=== PATIENT | male | born 1945 | race Caucasian/White ===

== ENCOUNTER 2019-03-24 18:12 | Emergency (ER) | payer OTHER ==
[2019-03-24 18:26] VITALS: BMI 37.3
[2019-03-24] MEDS ORDERED: SODIUM CHLORIDE 0.9% 500 ML INFUS.BAG IV ONE (18:49)
[2019-03-24 19:12] LABS: EOS % 2.5 % (0-4.5); HEMATOCRIT 51.1 % (35.4-49); HEMOGLOBIN 16.7 GM/dl (11.7-16.9); LYMPH % 20.8 % (8-40); MCH 27.5 pg (25.7-33.7); MCHC 32.7 g/dl (32.0-35.9); MEAN CELL VOLUME 84.2 fl (80-96); MEAN PLT VOLUME 7.9 fl (7.5-11.1); MONO % 7.7 % (3.8-10.2); PLATELET COUNT 229 K/MM3 (134-434); RBC 6.07 M/mm3 (4.00-5.60); RDW 14.4 % (11.9-15.9); WHITE BLOOD COUNT 9.2 K/mm3 (4.0-10.8)
[2019-03-24 19:32] LABS: ALBUMIN 4.8 g/dl (3.4-5.0); BILIRUBIN,TOTAL 0.8 mg/dl (0.2-1); CALCIUM 9.2 mg/dl (8.5-10); POTASSIUM 3.9 mmol/L (3.5-5.1)
--- NOTE | 2019-03-24 19:43 | PDOC ---
Documentation entered by Charlotte Trujillo SCRIBE, acting as scribe for Kareen Wells MD. Kareen Wells MD: This documentation has been prepared by the Ronnie locke Brenda, SCRIBE, under my direction and personally reviewed by me in its entirety. I confirm that the documentation accurately reflects all work , treatment, procedures, and medical decision making performed by me. History of Present Illness - General Chief Complaint: Rectal Bleed Stated Complaint: RECTAL BLLEED History Source: Patient Exam Limitations: No Limitations - History of Present Illness Initial Comments: 03/24/19 19:04 The patient is a 73 year old male, with a significant PMH of HTN who presents to the emergency department with complaints of 3 hours of large bright red blood per rectum with clumps. As per patient, he noticed small amounts when passing a bowel movement this morning, and noticed that it got worse throughout the day. The patient states that he takes PM Aleve every night. The patient denies chest pain, shortness of breath, headache and dizziness. Denies fever, chills, nausea, vomiting, diarrhea and constipation. Denies any urinary symptoms. PAST MEDICAL HISTORY: PAST SURGICAL HISTORY: no significant history FAMILY HISTORY: no pertinent history SOCIAL HISTORY: Denies tobacco use or illicit drug use. MEDICATIONS: reviewed ALLERGIES: As per nursing notes General: No fevers or chills, no weakness, no weight loss HEENT: No change in vision. No sore throat,. No ear pain CardioVascular: No chest pain or shortness of breath Respiratory:No cough, or wheezing. Gastrointestinal: (+) Rectal bleeding. No nausea, vomiting, diarrhea or constipation. Genitourinary: No dysuria, hematuria, or frequency Musculoskeletal: No joint or muscle pain or swelling Neurologic: No headache, vertigo, dizziness or loss of consciousness Psychiatric: nor depression Skin: No rashes or easy bruising Endocrine: no increased thirst or abnormal weight change Allergic: no skin or latex allergy All other systems reviewed and normal General: (+) Tachycardic. (+) Diaphoretic. Well-nourished well-developed individual, no acute distress HEENT: Throat: Normal, tonsils normal, no erythema or exudate Neck: Supple, no meningeal signs, no lymphadenopathy Eyes::Pupils equal reactive and round, extraocular motion intact Chest: Nontender to palpation Cardiac: S1-S2 normal, no murmurs rubs or gallops Respiratory: Lungs clear to auscultation bilateral Abdomen: Soft, nondistended, normal bowel sounds, nontender to palpation diffusely GI: (+) Active rectal bleeding. Extremities: Warm, dry, no cyanosis, clubbing, or edema Skin: No rashes Neuro: Alert and oriented x3, nonfocal exam, grossly intact, normal gait Psych: Normal mood and affect 03/24/19 19:42 Assessment and plan: This is a 73-year-old male who comes in complaining of several episodes of bright red blood per rectum with clots and bleeding between bowel movements. Patient on arrival had a heart rate of 65 within an hour was heart rate 121. Patient had 2 large-bore IVs placed and fluid resuscitation was begun patient's heart rate 1 improved and he is 106 at this time after approximately 1 L fluid. Patient is now receiving 2 units of uncrossed matched packed cells. GI was contacted however due to patient's hemodynamic instability and it being unclear as to who was the GI that covered to [facility] varun in the overnight hours for emergencies the decision was made to send patient to [facility]. [facility] was contacted and spoke with A rescue ambulance was called and patient will be transferred to the emergency department. 03/24/19 19:49 Past History - Past Medical History Allergies/Adverse Reactions: Allergies Allergy/AdvReac Type Severity Reaction Status Date / Time No Known Allergies Allergy Verified 03/24/19 18:13 Home Medications: Ambulatory Orders Amlodipine Besylate 10 mg PO DAILY 03/24/19 Losartan Potassium 100 mg PO DAILY 03/24/19 Naproxen Sod/Diphenhydramine [Aleve Pm Caplet] 1 each PO HS 03/24/19 COPD: No HTN: Yes - Suicide/Smoking/Psychosocial Hx Smoking History: Never smoked Have you smoked in the past 12 months: No Information on smoking cessation initiated: No Hx Alcohol Use: No Drug/Substance Use Hx: No *Physical Exam - Vital Signs Last Vital Signs Temp Pulse Resp BP Pulse Ox 98.3 F 65 20 170/96 97 03/24/19 18:13 03/24/19 18:13 03/24/19 18:13 03/24/19 18:13 03/24/19 18:13 ED Treatment Course - LABORATORY CBC & Chemistry Diagram: 03/24/19 18:51 03/24/19 18:51 - ADDITIONAL ORDERS Additional order review: Laboratory Results 03/24/19 03/24/19 18:51 18:51 Sodium 136 Potassium 3.9 Chloride 104 Carbon Dioxide 22 Anion Gap 10 BUN 18.0 Creatinine 1.0 Est GFR (CKD-EPI)AfAm 87.37 Est GFR (CKD-EPI)NonAf 75.39 Random Glucose 130 H Calcium 9.2 Total Bilirubin 0.8 AST 26 ALT 23 Alkaline Phosphatase 91 Total Protein 8.0 Albumin 4.8 Crossmatch See Detail 03/24/19 18:51 RBC 6.07 H MCV 84.2 MCHC 32.7 RDW 14.4 MPV 7.9 Neutrophils % 68.0 Lymphocytes % 20.8 Monocytes % 7.7 Eosinophils % 2.5 Basophils % 1.0 - Medications Given in the ED: ED Medications Discontinued Medications Generic Name Dose Route Start Last Admin Trade Name Freq PRN Reason Stop Dose Admin Sodium Chloride 1,000 ml 03/24/19 18:49 03/24/19 18:57 Normal Saline - IV 03/24/19 18:50 1,000 ml ONCE ONE Administration Medical Decision Making - Critical Care Time Total Critical Care Time (minutes): 45 Critical Care Statement: The care of this patient involved high complexity decision making to prevent further life threatening deterioration of the patient 's condition and/or to evaluate & treat vital organ system(s) failure or risk of failure. - Medical Decision Making 03/24/19 19:[address] Gonzalez at 19:05 - no answer. *DC/Admit/Observation/Transfer Diagnosis at time of Disposition: Bright red blood per rectum - Discharge Dispostion Disposition: TRANSFER ACUTE CARE/OTHER HOSP Condition at time of disposition: Critical - Referrals - Patient Instructions - Post Discharge Activity
[2019-03-24 19:54] LABS: INR 1.16 (0.82-1.09)
[2019-03-24 20:30] VITALS: BP 147/75; PULSE 87; TEMP 98.2
== END 2019-03-24 20:35 | disposition short-term general hospital (02) ==
LOC: FER 18:12
PROC: 3E0337Z Introduction of Electrolytic and Water Balance Substance into Peripheral Vein, Percutaneous Approach (ICD-10-PCS; principal; 2019-03-24)
DX: K62.5 Hemorrhage of anus and rectum (principal); I10 Essential (primary) hypertension
CPT/HCPCS: 36415; 36430; 36511; 80053; 83880; 84484; 85025; 85610; 85730; 86850; 86900; 86901; 86922; 99285-25; P9038; P9058

== ENCOUNTER 2020-09-06 16:37 | Emergency (ER) | payer OTHER | END 2020-09-06 17:32 | disposition home or self-care (01) | LOC: JVIRT 16:37 | DX: Z11.52 Encounter for screening for COVID-19 (principal) | CPT/HCPCS: C9803; G2251-GT; U0003 ==

== ENCOUNTER 2022-04-09 15:40 | Inpatient (IN) | payer OTHER ==
[2022-04-09] MEDS ORDERED: CEPHALEXIN MONOHYDRATE 500 MG CAPSULE (UD) PO ONE (17:08)
[2022-04-09] MEDS ORDERED: CEPHALEXIN MONOHYDRATE 500 MG CAPSULE (UD) ONE (17:17)
[2022-04-09 17:53] LABS: HEMOGLOBIN 17.6 G/dL (11.7-16.9); MCH 29.1 pg (25.7-33.7); MCHC 34.5 g/dl (32.0-35.9); MEAN CELL VOLUME 84.3 fl (80-96); MEAN PLT VOLUME 7.5 fl (7.5-11.1); PLATELET COUNT 161.2 10^3/uL (134-434); RBC 6.05 10^6/uL (4.00-5.60); RDW 15.2 % (11.9-15.9); WHITE BLOOD COUNT 10.1 10^3/uL (4.0-10.8)
[2022-04-09 17:59] LABS: INR 1.08 (0.83-1.09); PROTHROMBIN TIME (PATIENT) 12.4 SEC (9.7-13.0)
[2022-04-09 18:02] LABS: ACTIVATED PTT 33.1 SECONDS (25.2-36.5)
[2022-04-09 18:05] LABS: ALBUMIN 4.7 g/dl (3.4-5.0); BILIRUBIN,TOTAL 0.9 mg/dl (0.2-1); CALCIUM 9.5 mg/dl (8.5-10); TOT PROT 8.5 g/dl (6.4-8.2)
[2022-04-09 18:45] LABS: PLATELET ESTIMATE ADEQUATE
[2022-04-09] MEDS ORDERED: ENOXAPARIN NA (PORCINE) 80 MG/0.8 ML DISP.SYRIN SQ ONE (18:48)
[2022-04-09] MEDS ORDERED: ENOXAPARIN NA (PORCINE) 100 MG/1 ML DISP.SYRIN SQ ONE (18:54)
[2022-04-09] MEDS ORDERED: ENOXAPARIN NA (PORCINE) 40 MG/0.4 ML DISP.SYRIN SQ ONE (21:45)
[2022-04-09] MEDS ORDERED: ENOXAPARIN NA (PORCINE) 60 MG/0.6 ML DISP.SYRIN SQ ONE (21:47)
[2022-04-10 04:35] VITALS: BMI 36.2
[2022-04-10 06:49] VITALS: PULSE 86; TEMP 98.2
[2022-04-10 08:09] LABS: BASO % 1.1 % (0-2.0); EOS % 3.2 % (0-4.5); HEMOGLOBIN 15.4 GM/dL (11.7-16.9); LYMPH % 21.7 % (8-40); MCH 27.1 pg (25.7-33.7); MCHC 32.1 g/dl (32.0-35.9); MEAN CELL VOLUME 84.2 fl (80-96); MEAN PLT VOLUME 7.8 fl (7.5-11.1); MONO % 8.2 % (3.8-10.2); NEUT % 65.8 % (42.8-82.8); PLATELET COUNT 176 10^3/uL (134-434); RDW 15.8 % (11.9-15.9); RETICULOCYTES 0.92 % (0.5-1.5); WHITE BLOOD COUNT 8.4 K/mm3 (4.0-10.0)
[2022-04-10] MEDS ORDERED: LOSARTAN POTASSIUM 50 MG TABLET PO SCH (10:00)
[2022-04-10] MEDS ORDERED: amLODIPine BESYLATE 10 MG TABLET (FP) PO SCH (10:00)
[2022-04-10] MEDS ORDERED: ENOXAPARIN NA (PORCINE) 120 MG/0.8 ML DISP.SYRIN SQ SCH (10:00)
[2022-04-10 10:07] LABS: BLOOD UREA NITROGEN 19.9 mg/dL (7-18); CALCIUM 7.2 mg/dL (8.5-10.1)
[2022-04-10 10:11] LABS: BILIRUBIN,TOTAL 0.5 mg/dL (0.2-1); TOT PROT 7.2 g/dl (6.4-8.2)
[2022-04-10 10:44] LABS: ALBUMIN 4.1 g/dl (3.4-5.0)
[2022-04-10 11:19] VITALS: BP 124/99; RESP 18
[2022-04-14 00:06] LABS: PROTEIN S, FREE 103 % (61-136)
== END 2022-04-10 13:41 | disposition home or self-care (01) | DRG 299 ==
LOC: FER 15:40 → FM/S 17:11 → J4W 04-10 03:05 → OBSVTOIN 04-10 04:15
PROVIDERS: ADMIT Internal Medicine; ATTEND Internal Medicine
DX: I82.411 Acute embolism and thrombosis of right femoral vein (principal); U07.1 COVID-19; D68.9 Coagulation defect, unspecified; I82.431 Acute embolism and thrombosis of right popliteal vein; I10 Essential (primary) hypertension; K57.90 Diverticulosis of intestine, part unspecified, without perforation or abscess without bleeding; Z86.718 Personal history of other venous thrombosis and embolism
CPT/HCPCS: 36415; 80053; 81240; 81241; 85025; 85027; 85045; 85300; 85305; 85306; 85610; 85730; 86140; 93005; 93010; 93971-TC; 99285-25; C9803-CS; G0378; U0003; U0005

== ENCOUNTER 2024-04-22 16:22 | Inpatient (IN) | payer OTHER ==
[2024-04-22 18:06] LABS: HEMATOCRIT 52.9 % (35.4-49); HEMOGLOBIN 16.4 G/dL (11.7-16.9); MCH 27.8 pg (25.7-33.7); MEAN CELL VOLUME 89.8 fl (80-96); MEAN PLT VOLUME 7.5 fl (7.5-11.1); RBC 5.89 10^6/uL (4.00-5.60); RDW 16.2 % (11.9-15.9); WHITE BLOOD COUNT 7.6 10^3/uL (4.0-10.8)
[2024-04-22 18:30] LABS: ALBUMIN 4.5 g/dl (3.4-5.0); BILIRUBIN,TOTAL 0.5 mg/dl (0.2-1); CALCIUM 9.2 mg/dl (8.5-10.1); CREATININE 0.7 mg/dl (0.6-1.3); POTASSIUM 4.3 mmol/L (3.5-5.1); TOT PROT 7.1 g/dl (6.4-8.2)
[2024-04-22 18:51] LABS: PLATELET ESTIMATE ADEQUATE
[2024-04-22 19:25] LABS: N-TERMINAL BNP 136.7 pg/ml (5-450)
[2024-04-22] MEDS ORDERED: morphine SULFATE 4 MG/ML VIAL ONE (19:51)
[2024-04-22] MEDS: morphine CARPU-JECT 4 MG/1 ML DISP.SYRIN IVPUSH ONE (19:55)
[2024-04-22] MEDS ORDERED: DOCUSATE SODIUM 100 MG CAPSULE (FP) PO PRN (21:20)
[2024-04-22] MEDS ORDERED: ACETAMINOPHEN 1000 MG/100 ML BAG IVPB PRN (21:32)
[2024-04-22 22:12] LABS: ACTIVATED PTT 55.6 SECONDS (25.2-36.5); INR 1.23 (0.83-1.09); PROTHROMBIN TIME (PATIENT) 13.9 SEC (9.7-13.0)
[2024-04-23 09:00] LABS: CALCIUM 8.8 mg/dl (8.5-10.1); CREATININE 0.7 mg/dl (0.6-1.3); POTASSIUM 4.3 mmol/L (3.5-5.1)
[2024-04-23] MEDS ORDERED: FUROSEMIDE 40 MG/4 ML INJECTABLE VIAL IVPUSH SCH (10:00)
[2024-04-23] MEDS: ENOXAPARIN NA (PORCINE) 100 MG/1 ML DISP.SYRIN SQ SCH (10:07)
[2024-04-23] MEDS: LOSARTAN POTASSIUM 50 MG TABLET PO SCH (10:07)
[2024-04-23] MEDS: amLODIPine BESYLATE 10 MG TABLET (FP) PO SCH (10:08)
[2024-04-23 12:07] LABS: BASO % 0.3 % (0-2.0); EOS % 0.2 % (0-4.5); HEMATOCRIT 48.6 % (35.4-49); HEMOGLOBIN 15.5 GM/dL (11.7-16.9); LYMPH % 7.9 % (8-40); MCH 27.4 pg (25.7-33.7); MCHC 31.9 g/dl (32.0-35.9); MEAN CELL VOLUME 85.9 fl (80-96); MEAN PLT VOLUME 7.7 fl (7.5-11.1); NEUT % 86.6 % (42.8-82.8); PLATELET COUNT 158 10^3/uL (134-434); RBC 5.65 M/mm3 (4.00-5.60); RDW 15.8 % (11.9-15.9); WHITE BLOOD COUNT 6.5 K/mm3 (4.0-10.0)
[2024-04-23] MEDS: SODIUM CHLORIDE 0.9% 500 ML INFUS.BAG IV ONE (19:24)
[2024-04-23] MEDS: ACETAMINOPHEN 325 MG TABLET (FP) PO PRN (21:46)
[2024-04-24 09:49] LABS: ALBUMIN 4.7 g/dl (3.4-5.0); BILIRUBIN,TOTAL 0.7 mg/dl (0.2-1); CALCIUM 9.7 mg/dl (8.5-10.1); POTASSIUM 4.3 mmol/L (3.5-5.1); TOT PROT 7.5 g/dl (6.4-8.2)
[2024-04-24 11:36] LABS: BASO % 0.2 % (0-2.0); EOS % 0.1 % (0-4.5); HEMATOCRIT 51.3 % (35.4-49); HEMOGLOBIN 16.4 GM/dL (11.7-16.9); LYMPH % 4.7 % (8-40); MCH 27.5 pg (25.7-33.7); MCHC 31.9 g/dl (32.0-35.9); MEAN CELL VOLUME 86.2 fl (80-96); MEAN PLT VOLUME 8.2 fl (7.5-11.1); MONO % 8.1 % (3.8-10.2); NEUT % 86.9 % (42.8-82.8); PLATELET COUNT 194 10^3/uL (134-434); RBC 5.95 M/mm3 (4.00-5.60); RDW 16.3 % (11.9-15.9); WHITE BLOOD COUNT 12.4 K/mm3 (4.0-10.0)
[2024-04-24 11:42] LABS: N-TERMINAL BNP 209.2 pg/ml (5-450)
[2024-04-24] MEDS: BACITRACIN ZINC 15 GM TUBE TOPICAL OINTMENT TP ONE (19:38)
[2024-04-24] MEDS: LIDOCAINE 5% TOPICAL PATCH TP ONE (19:38)
[2024-04-24] MEDS: FUROSEMIDE 40 MG/4 ML INJECTABLE VIAL IVPUSH ONE (19:38)
[2024-04-24 20:54] LABS: EPI CELLS 4 /uL (0-25.1); HYALINE CASTS 1 /uL (0-3.1); PH,URINE 5.5 (5.0-8.0); URINE APPEARANCE CLEAR; URINE BACTERIA 33 /uL (0-1359); URINE BILIRUBIN NEGATIVE (NEGATIVE); URINE COLOR YELLOW; URINE GLUCOSE (UA) NEGATIVE (NEGATIVE); URINE KETONE 1+ (NEGATIVE); URINE LEUK ESTERASE 2+ (NEGATIVE); URINE NITRITE NEGATIVE (NEGATIVE); URINE PROTEIN TRACE (NEGATIVE); URINE RBC 18 /uL (0-23.9); URINE WBC 37 /uL (0-25.8)
[2024-04-24 21:01] LABS: MAGNESIUM 2.2 mg/dL (1.8-2.4)
[2024-04-24 21:04] LABS: PHOSPHOROUS 2.1 mg/dL (2.5-4.9)
[2024-04-24] MEDS: LIDOCAINE PATCH REMOVAL MC SCH (22:13)
[2024-04-25] MEDS ORDERED: METOPROLOL TARTRATE 5 MG/5 ML VIAL IVPUSH PRN (06:13)
[2024-04-25 07:24] LABS: MAGNESIUM 2.1 mg/dL (1.8-2.4)
[2024-04-25 07:35] LABS: BASO % 0.6 % (0-2.0); EOS % 0.1 % (0-4.5); HEMATOCRIT 50.5 % (35.4-49); HEMOGLOBIN 16.4 GM/dL (11.7-16.9); LYMPH % 6.7 % (8-40); MCH 27.6 pg (25.7-33.7); MCHC 32.4 g/dl (32.0-35.9); MEAN CELL VOLUME 85.1 fl (80-96); MEAN PLT VOLUME 7.6 fl (7.5-11.1); MONO % 7.2 % (3.8-10.2); NEUT % 85.4 % (42.8-82.8); PLATELET COUNT 181 10^3/uL (134-434); RBC 5.94 M/mm3 (4.00-5.60); WHITE BLOOD COUNT 14.1 K/mm3 (4.0-10.0)
[2024-04-25 09:12] LABS: ALBUMIN 3.8 g/dl (3.4-5.0); BILIRUBIN,TOTAL 0.6 mg/dL (0.2-1); BLOOD UREA NITROGEN 22.9 mg/dL (7-18); CALCIUM 9.6 mg/dL (8.5-10.1); CREATININE 0.9 mg/dL (0.55-1.3); POTASSIUM 3.8 mmol/L (3.5-5.1); TOT PROT 7.4 g/dl (6.4-8.2)
[2024-04-25] MEDS: LOSARTAN POTASSIUM 50 MG TABLET PO SCH (10:10)
[2024-04-25] MEDS: amLODIPine BESYLATE 10 MG TABLET (FP) PO SCH (10:10)
[2024-04-25 15:43] LABS: ARTERIAL BLOOD GAS BASE EXCESS 3.9 mmol/L (-2-2); ARTERIAL BLOOD GAS PO2 197.3 mmHg (80-100); ARTERIAL BLOOD GAS pH 7.203 (7.350-7.450)
[2024-04-25] MEDS ORDERED: VANCOMYCIN/WATER FOR INJ (PEG) 1,000 MG/200 ML BAG IVPB ONE (15:43)
[2024-04-25 15:45] LABS: ALLENS TEST POSITIVE
[2024-04-25 15:46] LABS: VENT MODE S/T; VENT RATE 14
[2024-04-25] MEDS: FLUMAZENIL 0.5 MG/5 ML VIAL IVPUSH PRN (16:00)
[2024-04-25] MEDS: FLUMAZENIL 0.5 MG/5 ML VIAL IVPUSH ONE ×3 (16:37→19:11)
[2024-04-25] MEDS: PIPERACILLIN/TAZOB 3.375 GM 3.375 GM in DEXTROSE 5%-WATER - 50 ML IVPB SCH (16:37)
[2024-04-25 16:54] LABS: ALLENS TEST POSITIVE; ARTERIAL BLOOD GAS PO2 199.9 mmHg (80-100)
[2024-04-25 16:55] LABS: VENT RATE 20
[2024-04-25 16:56] LABS: ARTERIAL BLOOD GAS pH 7.176 (7.350-7.450)
[2024-04-25] MEDS ORDERED: PROPOFOL 1,000,000 MCG/100 ML VIAL ONE (17:24)
[2024-04-25] MEDS: PROPOFOL 1,000,000 MCG/100 ML VIAL IVPB SCH (17:30)
[2024-04-25 17:49] LABS: BASO % 0.3 % (0-2.0); HEMATOCRIT 48.2 % (35.4-49); HEMOGLOBIN 15.6 GM/dL (11.7-16.9); LYMPH % 5.7 % (8-40); MCH 27.5 pg (25.7-33.7); MCHC 32.5 g/dl (32.0-35.9); MEAN CELL VOLUME 84.7 fl (80-96); MONO % 5.5 % (3.8-10.2); NEUT % 88.5 % (42.8-82.8); PLATELET COUNT 184 10^3/uL (134-434); RBC 5.69 M/mm3 (4.00-5.60); RDW 15.9 % (11.9-15.9); WHITE BLOOD COUNT 12.6 K/mm3 (4.0-10.0)
[2024-04-25 18:08] LABS: POTASSIUM 4.8 mmol/L (3.5-5.1)
[2024-04-25 18:10] LABS: ALBUMIN 3.4 g/dl (3.4-5.0); CALCIUM 8.8 mg/dL (8.5-10.1)
[2024-04-25 18:11] LABS: BLOOD UREA NITROGEN 27.8 mg/dL (7-18)
[2024-04-25 18:15] LABS: BILIRUBIN,TOTAL 0.5 mg/dL (0.2-1)
[2024-04-25 18:18] LABS: N-TERMINAL BNP 420.6 pg/ml (5-450)
[2024-04-25 20:13] LABS: ARTERIAL BLD GAS O2 SATURATION 97.5 % (95-98); ARTERIAL BLOOD GAS PO2 93.6 mmHg (80-100); ARTERIAL BLOOD GAS pH 7.466 (7.350-7.450)
[2024-04-25 20:19] LABS: ALLENS TEST POSITIVE; VENT MODE A/C; VENT RATE 20
[2024-04-25] MEDS: DEXMEDETOMIDINE PREMIX 400 MCG/100 ML BAG IVPB SCH (21:14)
[2024-04-25] MEDS ORDERED: MUPIROCIN 2% TOPICAL OINTMENT FOR DECOLONIZATION NS SCH (22:00)
[2024-04-25] MEDS ORDERED: CHLORHEXIDINE GLUCONATE 4% CLEANSER FOR DECOLONIZATION TP SCH (22:00)
[2024-04-25] MEDS: CHLORHEXIDINE GLUCONATE 4% CLEANSER FOR DECOLONIZATION TP SCH (22:21)
[2024-04-25] MEDS: MUPIROCIN 2% TOPICAL OINTMENT FOR DECOLONIZATION NS SCH (22:22)
[2024-04-25] MEDS: AMINO ACIDS/PROTEIN HYDROLYS 30 ML LIQUID.PKT PO SCH (22:23)
[2024-04-25 22:53] LABS: URINE APPEARANCE CLEAR; URINE BILIRUBIN NEGATIVE (NEGATIVE); URINE COLOR YELLOW; URINE GLUCOSE (UA) NEGATIVE (NEGATIVE); URINE KETONE TRACE (NEGATIVE); URINE NITRITE NEGATIVE (NEGATIVE); URINE PROTEIN TRACE (NEGATIVE)
[2024-04-25 22:54] LABS: URINE LEUK ESTERASE NEGATIVE (NEGATIVE)
[2024-04-25] MEDS: VANCOMYCIN/WATER FOR INJ (PEG) 1,000 MG/200 ML BAG IVPB ONE (22:56)
[2024-04-26] MEDS: LACTATED RINGERS SOLUTION 1,000 ML/1,000 ML INFUS.BAG IV STA (02:00)
[2024-04-26] MEDS: NOREPINEPHRINE BITARTRATE 4,000 MCG in DEXTROSE 5%-WATER - 496 ML IV SCH (03:00)
[2024-04-26] MEDS ORDERED: RAPID SEQUENCE INTUBATION KIT NR ONE (04:26)
[2024-04-26 07:24] LABS: BASO % 0.2 % (0-2.0); EOS % 0.3 % (0-4.5); HEMATOCRIT 43.3 % (35.4-49); LYMPH % 7.4 % (8-40); MCH 27.5 pg (25.7-33.7); MCHC 32.3 g/dl (32.0-35.9); MEAN CELL VOLUME 85.2 fl (80-96); MEAN PLT VOLUME 7.4 fl (7.5-11.1); MONO % 8.3 % (3.8-10.2); NEUT % 83.8 % (42.8-82.8); PLATELET COUNT 162 10^3/uL (134-434); RBC 5.09 M/mm3 (4.00-5.60); RDW 15.7 % (11.9-15.9)
[2024-04-26 07:31] LABS: ARTERIAL BLD GAS O2 SATURATION 95.4 % (95-98); ARTERIAL BLOOD GAS BASE EXCESS 5.7 mmol/L (-2-2); ARTERIAL BLOOD GAS PO2 73.2 mmHg (80-100); ARTERIAL BLOOD GAS pH 7.463 (7.350-7.450)
[2024-04-26 07:33] LABS: ALLENS TEST POSITIVE; VENT MODE A/C; VENT RATE 20
[2024-04-26 07:50] LABS: POTASSIUM 3.6 mmol/L (3.5-5.1)
[2024-04-26 07:59] LABS: BLOOD UREA NITROGEN 37.9 mg/dL (7-18)
[2024-04-26 08:03] LABS: CREATININE 1.2 mg/dL (0.55-1.3)
[2024-04-26 08:04] LABS: BILIRUBIN,TOTAL 0.9 mg/dL (0.2-1)
[2024-04-26 08:05] LABS: TOT PROT 5.8 g/dl (6.4-8.2)
[2024-04-26] MEDS ORDERED: DOCUSATE SODIUM 100 MG CAPSULE (FP) PO PRN (11:37)
[2024-04-26] MEDS ORDERED: ACETAMINOPHEN 325 MG TABLET (FP) PO PRN (11:37)
[2024-04-26] MEDS ORDERED: FLUMAZENIL 0.5 MG/5 ML VIAL IVPUSH PRN (11:37)
[2024-04-26] MEDS: FLUTICASONE/UMECLIDIN/VILANTER(200-62.5-25 TRELEGY ELLIPTA) INAHLER IH SCH (12:32)
[2024-04-26] MEDS: PROPOFOL 1,000,000 MCG/100 ML VIAL IVPB SCH (15:02)
[2024-04-26] MEDS: methylPREDNISolone NA SUCC 40 MG/1 ML VIAL IVPUSH SCH (15:50)
[2024-04-26] MEDS: PIPERACILLIN/TAZOB 3.375 GM 3.375 GM in DEXTROSE 5%-WATER - 50 ML IVPB SCH ×2 (15:52→17:32)
[2024-04-26] MEDS ORDERED: ALBUTEROL SO4 0.083% IH SOL 2.5 MG/3 ML VIAL.NEB. NEB ONE (17:08)
[2024-04-26] MEDS: SODIUM CHLORIDE 1,000 ML IV SCH (17:10)
[2024-04-26] MEDS: AMINO ACIDS/PROTEIN HYDROLYS 30 ML LIQUID.PKT PO SCH (17:33)
[2024-04-26] MEDS ORDERED: PIPERACILLIN/TAZOB 3.375 GM 3.375 GM in DEXTROSE 5%-WATER - 50 ML IVPB SCH (18:00)
[2024-04-26] MEDS: ENOXAPARIN NA (PORCINE) 100 MG/1 ML DISP.SYRIN SQ SCH (21:46)
[2024-04-26] MEDS ORDERED: LIDOCAINE PATCH REMOVAL MC SCH (22:00)
[2024-04-27 06:13] LABS: BASO % 0.2 % (0-2.0); HEMATOCRIT 45.4 % (35.4-49); HEMOGLOBIN 14.7 GM/dL (11.7-16.9); MCH 27.3 pg (25.7-33.7); MCHC 32.4 g/dl (32.0-35.9); MEAN CELL VOLUME 84.4 fl (80-96); MEAN PLT VOLUME 7.5 fl (7.5-11.1); MONO % 6.7 % (3.8-10.2); NEUT % 86.1 % (42.8-82.8); PLATELET COUNT 157 10^3/uL (134-434); RBC 5.38 M/mm3 (4.00-5.60); RDW 15.3 % (11.9-15.9); WHITE BLOOD COUNT 7.6 K/mm3 (4.0-10.0)
[2024-04-27 06:24] LABS: POTASSIUM 3.5 mmol/L (3.5-5.1)
[2024-04-27 06:25] LABS: CALCIUM 8.2 mg/dL (8.5-10.1)
[2024-04-27 06:26] LABS: ALBUMIN 2.7 g/dl (3.4-5.0); BLOOD UREA NITROGEN 25.5 mg/dL (7-18); MAGNESIUM 1.8 mg/dL (1.8-2.4)
[2024-04-27 06:29] LABS: CREATININE 0.8 mg/dL (0.55-1.3); PHOSPHOROUS 3.9 mg/dL (2.5-4.9)
[2024-04-27 06:31] LABS: BILIRUBIN,TOTAL 0.7 mg/dL (0.2-1); TOT PROT 5.8 g/dl (6.4-8.2)
[2024-04-27] MEDS: ZINC SULFATE 220 MG CAPSULE (FP) PO SCH ×2 (07:47→09:05)
[2024-04-27] MEDS: ASCORBIC ACID 500 MG TABLET (FP) PO SCH ×2 (07:48→09:07)
[2024-04-27] MEDS ORDERED: ALBUTEROL SO4 2.5/IPRATROPIUM 0.5 INH SOL 3 ML VIAL.NEB. NEB PRN (10:41)
[2024-04-27] MEDS ORDERED: FENTANYL NS IVPB 500 MCG/100 ML BAG IVPB ONE (12:21)
[2024-04-27 13:17] VITALS: BMI 31.2
[2024-04-27] MEDS: PROPOFOL 1,000,000 MCG/100 ML VIAL IVPB SCH (14:18)
[2024-04-27] MEDS: FENTANYL NS IVPB 500 MCG/100 ML BAG IVPB SCH (14:43)
[2024-04-27] MEDS: PIPERACILLIN/TAZOB 3.375 GM 50 ML IVPB SCH (18:04)
[2024-04-27] MEDS: ENOXAPARIN NA (PORCINE) 100 MG/1 ML DISP.SYRIN SQ SCH (22:35)
[2024-04-28 07:37] LABS: BASO % 0.3 % (0-2.0); EOS % 0.2 % (0-4.5); HEMATOCRIT 40.6 % (35.4-49); HEMOGLOBIN 13.1 GM/dL (11.7-16.9); LYMPH % 15.7 % (8-40); MCH 27.4 pg (25.7-33.7); MCHC 32.3 g/dl (32.0-35.9); MEAN CELL VOLUME 84.8 fl (80-96); MEAN PLT VOLUME 8.1 fl (7.5-11.1); MONO % 9.9 % (3.8-10.2); NEUT % 73.9 % (42.8-82.8); PLATELET COUNT 166 10^3/uL (134-434); RBC 4.79 M/mm3 (4.00-5.60); RDW 15.6 % (11.9-15.9); WHITE BLOOD COUNT 7.2 K/mm3 (4.0-10.0)
[2024-04-28 07:44] LABS: POTASSIUM 3.3 mmol/L (3.5-5.1)
[2024-04-28 07:47] LABS: BLOOD UREA NITROGEN 24.5 mg/dL (7-18)
[2024-04-28 07:48] LABS: ALBUMIN 2.5 g/dl (3.4-5.0); CALCIUM 8.1 mg/dL (8.5-10.1); MAGNESIUM 1.9 mg/dL (1.8-2.4)
[2024-04-28 07:51] LABS: CREATININE 0.9 mg/dL (0.55-1.3); PHOSPHOROUS 2.5 mg/dL (2.5-4.9)
[2024-04-28 07:52] LABS: BILIRUBIN,TOTAL 0.5 mg/dL (0.2-1); TOT PROT 5.3 g/dl (6.4-8.2)
[2024-04-28] MEDS ORDERED: FUROSEMIDE 40 MG/4 ML INJECTABLE VIAL IVPUSH ONE (08:15)
[2024-04-28] MEDS: KCL 10 MEQ IVPB 10 MEQ/100 ML INFUS.BAG IVPB SCH (08:26)
[2024-04-28] MEDS: DEXMEDETOMIDINE PREMIX 400 MCG/100 ML BAG IVPB SCH (11:43)
[2024-04-28] MEDS: ALBUTEROL SO4 2.5/IPRATROPIUM 0.5 INH SOL 3 ML VIAL.NEB. NEB SCH (11:51)
[2024-04-29 06:57] LABS: BASO % 0.2 % (0-2.0); EOS % 0.2 % (0-4.5); HEMATOCRIT 46.2 % (35.4-49); HEMOGLOBIN 14.6 GM/dL (11.7-16.9); LYMPH % 18.8 % (8-40); MCH 27.2 pg (25.7-33.7); MCHC 31.7 g/dl (32.0-35.9); MEAN CELL VOLUME 85.7 fl (80-96); MEAN PLT VOLUME 8.2 fl (7.5-11.1); MONO % 10.2 % (3.8-10.2); NEUT % 70.6 % (42.8-82.8); PLATELET COUNT 154 10^3/uL (134-434); RBC 5.39 M/mm3 (4.00-5.60); RDW 15.5 % (11.9-15.9); WHITE BLOOD COUNT 6.1 K/mm3 (4.0-10.0)
[2024-04-29 07:12] LABS: POTASSIUM 4.1 mmol/L (3.5-5.1)
[2024-04-29 07:14] LABS: ALBUMIN 2.8 g/dl (3.4-5.0); BLOOD UREA NITROGEN 17.9 mg/dL (7-18); CALCIUM 8.4 mg/dL (8.5-10.1); MAGNESIUM 1.9 mg/dL (1.8-2.4)
[2024-04-29 07:17] LABS: CREATININE 0.7 mg/dL (0.55-1.3); PHOSPHOROUS 3.7 mg/dL (2.5-4.9)
[2024-04-29 07:19] LABS: BILIRUBIN,TOTAL 0.6 mg/dL (0.2-1); TOT PROT 6.1 g/dl (6.4-8.2)
[2024-04-30 07:47] LABS: BASO % 0.2 % (0-2.0); HEMATOCRIT 49.6 % (35.4-49); HEMOGLOBIN 15.8 GM/dL (11.7-16.9); LYMPH % 12.4 % (8-40); MCH 27.3 pg (25.7-33.7); MCHC 31.9 g/dl (32.0-35.9); MEAN CELL VOLUME 85.7 fl (80-96); MEAN PLT VOLUME 7.8 fl (7.5-11.1); MONO % 10.4 % (3.8-10.2); PLATELET COUNT 197 10^3/uL (134-434); RBC 5.79 M/mm3 (4.00-5.60); RDW 15.7 % (11.9-15.9); WHITE BLOOD COUNT 9.4 K/mm3 (4.0-10.0)
[2024-04-30 08:22] LABS: POTASSIUM 3.7 mmol/L (3.5-5.1)
[2024-04-30 08:52] LABS: CALCIUM 9.1 mg/dL (8.5-10.1)
[2024-04-30 08:53] LABS: ALBUMIN 3.1 g/dl (3.4-5.0); BLOOD UREA NITROGEN 18.6 mg/dL (7-18); MAGNESIUM 1.9 mg/dL (1.8-2.4)
[2024-04-30 08:56] LABS: CREATININE 0.8 mg/dL (0.55-1.3); PHOSPHOROUS 3.4 mg/dL (2.5-4.9)
[2024-04-30 08:57] LABS: BILIRUBIN,TOTAL 0.9 mg/dL (0.2-1); TOT PROT 6.5 g/dl (6.4-8.2)
[2024-04-30] MEDS: METOPROLOL TARTRATE 5 MG/5 ML VIAL IVPUSH PRN (14:08)
[2024-04-30] MEDS: METOPROLOL TARTRATE 5 MG/5 ML VIAL IVPUSH ONE (18:20)
[2024-05-01] MEDS ORDERED: RAPID SEQUENCE INTUBATION KIT NR ONE (01:40)
[2024-05-01] MEDS ORDERED: FENTANYL IVPB 500 MCG/100 ML BAG IVPB SCH (02:00)
[2024-05-01] MEDS ORDERED: PROPOFOL 1,000,000 MCG/100 ML VIAL ONE (02:05)
[2024-05-01] MEDS ORDERED: NOREPINEPHRINE BITARTRATE 4,000 MCG in DEXTROSE 5%-WATER - 496 ML IV SCH (02:15)
[2024-05-01] MEDS: PROPOFOL 1,000,000 MCG/100 ML VIAL IVPB SCH (02:37)
[2024-05-01] MEDS: NOREPINEPHRINE 0.9 % NACL 8 MG/250 ML BAG IVPB SCH (02:37)
[2024-05-01] MEDS: FENTANYL NS IVPB 500 MCG/100 ML BAG IVPB SCH (02:38)
[2024-05-01 02:55] LABS: INR 2.6 (0.83-1.09); PROTHROMBIN TIME (PATIENT) 29.1 SEC (9.7-13.0)
[2024-05-01 02:58] LABS: HEMATOCRIT 17.4 % (35.4-49); MCH 28.1 pg (25.7-33.7); MCHC 31.4 g/dl (32.0-35.9); MEAN CELL VOLUME 89.6 fl (80-96); PLATELET COUNT 67 10^3/uL (134-434); RBC 1.94 M/mm3 (4.00-5.60); WHITE BLOOD COUNT 2.6 K/mm3 (4.0-10.0)
[2024-05-01 03:08] LABS: HEMOGLOBIN 5.5 GM/dL (11.7-16.9)
[2024-05-01 03:09] LABS: ARTERIAL BLD GAS O2 SATURATION 92.5 % (95-98); ARTERIAL BLOOD GAS BASE EXCESS 6.3 mmol/L (-2-2); ARTERIAL BLOOD GAS PO2 69.6 mmHg (80-100); ARTERIAL BLOOD GAS pH 7.344 (7.350-7.450)
[2024-05-01 03:11] LABS: ALLENS TEST POSITIVE; VENT MODE A/C; VENT RATE 16
[2024-05-01 03:17] LABS: CHLORIDE 130 mmol/L (98-107)
[2024-05-01 03:20] LABS: BLOOD UREA NITROGEN 8.6 mg/dL (7-18); CO2 19 mmol/L (21-32); GLUCOSE,RANDOM 52 mg/dL (74-106)
[2024-05-01 03:22] LABS: SGPT/ALT 23 U/L (13-61)
[2024-05-01 03:23] LABS: SGOT/AST 18 U/L (15-37)
[2024-05-01 03:24] LABS: BILIRUBIN,TOTAL 0.2 mg/dL (0.2-1)
[2024-05-01 03:28] LABS: N-TERMINAL BNP 1111.3 pg/ml (5-450)
[2024-05-01 03:49] LABS: HEMATOCRIT 49.5 % (35.4-49); MCH 27.7 pg (25.7-33.7); MCHC 32.3 g/dl (32.0-35.9); MEAN CELL VOLUME 85.7 fl (80-96); MEAN PLT VOLUME 7.5 fl (7.5-11.1); PLATELET COUNT 247 10^3/uL (134-434); RBC 5.77 M/mm3 (4.00-5.60); RDW 15.9 % (11.9-15.9); WHITE BLOOD COUNT 10.6 K/mm3 (4.0-10.0)
[2024-05-01 03:55] LABS: ANISOCYTOSIS 1+; MACROCYTOSIS 0
[2024-05-01 04:21] LABS: ALBUMIN 0.9 g/dl (3.4-5.0); ALK PHOS 25 U/L (45-117); ANION GAP 5 mmol/L (4-13); CALCIUM < 8.5 mg/dL (8.5-10.1); CREATININE < 0.6 mg/dL (0.55-1.3); MAGNESIUM 0.6 mg/dL (1.8-2.4); POTASSIUM 1.7 mmol/L (3.5-5.1); SODIUM 154 mmol/L (136-145)
[2024-05-01 05:25] LABS: POTASSIUM 5.2 mmol/L (3.5-5.1)
[2024-05-01 05:26] LABS: EPI CELLS 1 /uL (0-25.1); HYALINE CASTS 1 /uL (0-3.1); URINE APPEARANCE CLEAR; URINE BACTERIA 3 /uL (0-1359); URINE BILIRUBIN NEGATIVE (NEGATIVE); URINE COLOR YELLOW; URINE GLUCOSE (UA) NEGATIVE (NEGATIVE); URINE KETONE TRACE (NEGATIVE); URINE LEUK ESTERASE NEGATIVE (NEGATIVE); URINE NITRITE NEGATIVE (NEGATIVE); URINE PROTEIN TRACE (NEGATIVE); URINE RBC 40 /uL (0-23.9); URINE WBC 2 /uL (0-25.8)
[2024-05-01 05:27] LABS: CALCIUM 8.5 mg/dL (8.5-10.1)
[2024-05-01 05:28] LABS: BLOOD UREA NITROGEN 18.2 mg/dL (7-18)
[2024-05-01 05:31] LABS: CREATININE 0.8 mg/dL (0.55-1.3)
[2024-05-01 05:33] LABS: BILIRUBIN,TOTAL 0.8 mg/dL (0.2-1)
[2024-05-01 05:40] LABS: ALBUMIN 2.8 g/dl (3.4-5.0); TOT PROT 6.2 g/dl (6.4-8.2)
[2024-05-01 07:47] LABS: HEMATOCRIT 47.7 % (35.4-49); HEMOGLOBIN 15.3 GM/dL (11.7-16.9); MCH 27.5 pg (25.7-33.7); MCHC 32.1 g/dl (32.0-35.9); MEAN CELL VOLUME 85.8 fl (80-96); PLATELET COUNT 242 10^3/uL (134-434); RBC 5.55 M/mm3 (4.00-5.60); RDW 15.9 % (11.9-15.9); WHITE BLOOD COUNT 11.2 K/mm3 (4.0-10.0)
[2024-05-01] MEDS: DEXMEDETOMIDINE PREMIX 400 MCG/100 ML BAG IVPB SCH (07:49)
[2024-05-01 08:07] LABS: POTASSIUM 3.7 mmol/L (3.5-5.1)
[2024-05-01 08:16] LABS: CALCIUM 8.4 mg/dL (8.5-10.1)
[2024-05-01 08:17] LABS: ALBUMIN 2.8 g/dl (3.4-5.0); BLOOD UREA NITROGEN 18.9 mg/dL (7-18); MAGNESIUM 1.8 mg/dL (1.8-2.4)
[2024-05-01 08:18] LABS: BILIRUBIN,TOTAL 0.7 mg/dL (0.2-1)
[2024-05-01 08:20] LABS: CREATININE 0.7 mg/dL (0.55-1.3)
[2024-05-01] MEDS: SODIUM PHOSPHATE - 30 MM in SODIUM CHLORIDE 250 ML IVPB ONE (10:51)
[2024-05-01] MEDS: methylPREDNISolone NA SUCC 40 MG/1 ML VIAL IVPUSH SCH (10:52)
[2024-05-01] MEDS: FLUTICASONE/UMECLIDIN/VILANTER(200-62.5-25 TRELEGY ELLIPTA) INAHLER IH SCH (13:17)
[2024-05-01] MEDS: MIDAZOLAM IN 0.9 % SOD.CHLORID 100 MG/100 ML PLAST..BAG IVPB SCH (13:51)
[2024-05-01] MEDS ORDERED: METOPROLOL TARTRATE 5 MG/5 ML VIAL ONE (13:57)
[2024-05-01] MEDS: DEXTROSE 50%-WATER 25 GM/50 ML DISP.SYRIN IVPUSH ONE (14:38)
[2024-05-01 20:19] LABS: ALLENS TEST POSITIVE; ARTERIAL BLD GAS O2 SATURATION 99.5 % (95-98); ARTERIAL BLOOD GAS BASE EXCESS 6.8 mmol/L (-2-2); ARTERIAL BLOOD GAS PO2 225.6 mmHg (80-100); ARTERIAL BLOOD GAS pH 7.458 (7.350-7.450)
[2024-05-01 20:20] LABS: VENT MODE A/C; VENT RATE 20
[2024-05-02] MEDS: FENTANYL NS IVPB 500 MCG/100 ML BAG IVPB SCH (05:39)
[2024-05-02 07:30] LABS: HEMATOCRIT 46.8 % (35.4-49); HEMOGLOBIN 15.2 GM/dL (11.7-16.9); MCH 27.6 pg (25.7-33.7); MCHC 32.5 g/dl (32.0-35.9); MEAN CELL VOLUME 84.8 fl (80-96); MEAN PLT VOLUME 7.9 fl (7.5-11.1); PLATELET COUNT 226 10^3/uL (134-434); RBC 5.52 M/mm3 (4.00-5.60); RDW 15.6 % (11.9-15.9); WHITE BLOOD COUNT 9.2 K/mm3 (4.0-10.0)
[2024-05-02 07:35] LABS: INR 1.16 (0.83-1.09)
[2024-05-02 07:48] LABS: POTASSIUM 3.7 mmol/L (3.5-5.1)
[2024-05-02 07:59] LABS: ARTERIAL BLD GAS O2 SATURATION 99.5 % (95-98); ARTERIAL BLOOD GAS BASE EXCESS 6.9 mmol/L (-2-2); ARTERIAL BLOOD GAS PO2 227.5 mmHg (80-100); ARTERIAL BLOOD GAS pH 7.473 (7.350-7.450)
[2024-05-02 08:00] LABS: ALLENS TEST POSITIVE; VENT MODE A/C; VENT RATE 20
[2024-05-02 08:03] LABS: CALCIUM 8.3 mg/dL (8.5-10.1); CREATININE 0.7 mg/dL (0.55-1.3)
[2024-05-02 08:04] LABS: BLOOD UREA NITROGEN 21.1 mg/dL (7-18); MAGNESIUM 1.9 mg/dL (1.8-2.4); PHOSPHOROUS 2.2 mg/dL (2.5-4.9)
[2024-05-02] MEDS: PIPERACILLIN/TAZOB 3.375 GM 50 ML IVPB SCH (09:50)
[2024-05-02] MEDS: ENOXAPARIN NA (PORCINE) 100 MG/1 ML DISP.SYRIN SQ SCH (12:47)
[2024-05-02] MEDS ORDERED: MIDAZOLAM HCL 2 MG/2 ML SINGLE DOSE VIAL IVPUSH PRN (15:30)
[2024-05-03 06:42] LABS: ALLENS TEST POSITIVE; ARTERIAL BLD GAS O2 SATURATION 97.9 % (95-98); ARTERIAL BLOOD GAS BASE EXCESS 8.8 mmol/L (-2-2); ARTERIAL BLOOD GAS PO2 110.2 mmHg (80-100); ARTERIAL BLOOD GAS pH 7.394 (7.350-7.450)
[2024-05-03 06:43] LABS: VENT MODE AC; VENT RATE 12
[2024-05-03 07:01] LABS: BASO % 0.1 % (0-2.0); EOS % 0.1 % (0-4.5); HEMATOCRIT 45.4 % (35.4-49); HEMOGLOBIN 14.4 GM/dL (11.7-16.9); LYMPH % 10.2 % (8-40); MCH 27.3 pg (25.7-33.7); MCHC 31.7 g/dl (32.0-35.9); MEAN CELL VOLUME 86.3 fl (80-96); MONO % 5.8 % (3.8-10.2); NEUT % 83.8 % (42.8-82.8); PLATELET COUNT 198 10^3/uL (134-434); RBC 5.26 M/mm3 (4.00-5.60); RDW 15.5 % (11.9-15.9); WHITE BLOOD COUNT 7.8 K/mm3 (4.0-10.0)
[2024-05-03 07:14] LABS: ALBUMIN 2.6 g/dl (3.4-5.0); BLOOD UREA NITROGEN 23.9 mg/dL (7-18); CALCIUM 8.7 mg/dL (8.5-10.1)
[2024-05-03 07:17] LABS: PHOSPHOROUS 2.7 mg/dL (2.5-4.9)
[2024-05-03 07:18] LABS: CREATININE 0.7 mg/dL (0.55-1.3)
[2024-05-03 07:19] LABS: BILIRUBIN,TOTAL 0.5 mg/dL (0.2-1); TOT PROT 5.6 g/dl (6.4-8.2)
[2024-05-03] MEDS: ALBUTEROL SO4 2.5/IPRATROPIUM 0.5 INH SOL 3 ML VIAL.NEB. NEB SCH (11:50)
[2024-05-04] MEDS: ACETAMINOPHEN 1000 MG/100 ML BAG IVPB ONE (01:03)
[2024-05-04 06:04] LABS: BASO % 0.2 % (0-2.0); HEMATOCRIT 44.2 % (35.4-49); LYMPH % 26.3 % (8-40); MCH 27.2 pg (25.7-33.7); MCHC 31.8 g/dl (32.0-35.9); MEAN CELL VOLUME 85.7 fl (80-96); MEAN PLT VOLUME 7.2 fl (7.5-11.1); MONO % 7.7 % (3.8-10.2); NEUT % 64.8 % (42.8-82.8); PLATELET COUNT 149 10^3/uL (134-434); RBC 5.16 M/mm3 (4.00-5.60); RDW 15.7 % (11.9-15.9)
[2024-05-04 06:23] LABS: POTASSIUM 3.6 mmol/L (3.5-5.1)
[2024-05-04 06:27] LABS: ALBUMIN 2.6 g/dl (3.4-5.0); BLOOD UREA NITROGEN 22.9 mg/dL (7-18); CALCIUM 8.3 mg/dL (8.5-10.1); MAGNESIUM 2.1 mg/dL (1.8-2.4)
[2024-05-04 06:30] LABS: CREATININE 0.7 mg/dL (0.55-1.3); PHOSPHOROUS 2.4 mg/dL (2.5-4.9)
[2024-05-04 06:32] LABS: BILIRUBIN,TOTAL 0.6 mg/dL (0.2-1); TOT PROT 5.4 g/dl (6.4-8.2)
[2024-05-04] MEDS: methylPREDNISolone NA SUCC 40 MG/1 ML VIAL IVPUSH SCH (09:14)
[2024-05-04] MEDS: NAPH,MB-DB/K PH,MBDB POWDER PACKET PO ONE (09:29)
[2024-05-04] MEDS: AMINO ACIDS 4.25%/D5W 1,000 ML IV SCH ×2 (15:30→16:22)
[2024-05-05 06:49] LABS: HEMATOCRIT 47.9 % (35.4-49); HEMOGLOBIN 15.7 GM/dL (11.7-16.9); MCH 27.6 pg (25.7-33.7); MCHC 32.8 g/dl (32.0-35.9); MEAN CELL VOLUME 84.2 fl (80-96); MEAN PLT VOLUME 7.8 fl (7.5-11.1); PLATELET COUNT 144 10^3/uL (134-434); RBC 5.68 M/mm3 (4.00-5.60); RDW 15.3 % (11.9-15.9); WHITE BLOOD COUNT 8.7 K/mm3 (4.0-10.0)
[2024-05-05 06:55] LABS: POTASSIUM 3.6 mmol/L (3.5-5.1)
[2024-05-05 06:59] LABS: BLOOD UREA NITROGEN 21.5 mg/dL (7-18); CALCIUM 8.8 mg/dL (8.5-10.1)
[2024-05-05 07:02] LABS: CREATININE 0.6 mg/dL (0.55-1.3)
[2024-05-05 08:41] LABS: ANISOCYTOSIS 0; MACROCYTOSIS 0
[2024-05-05] MEDS: METOPROLOL TARTRATE 5 MG/5 ML VIAL IVPUSH PRN (08:44)
[2024-05-05] MEDS: POLYETHYLENE GLYCOL (HEALTHYLAX) 3350 17 GM PACKET PO SCH (13:21)
[2024-05-05] MEDS: DOCUSATE SODIUM 100 MG CAPSULE (FP) PO SCH (13:21)
[2024-05-06 07:38] LABS: HEMATOCRIT 48.8 % (35.4-49); HEMOGLOBIN 16.4 GM/dL (11.7-16.9); MCH 28.3 pg (25.7-33.7); MCHC 33.6 g/dl (32.0-35.9); MEAN CELL VOLUME 84.2 fl (80-96); MEAN PLT VOLUME 8.1 fl (7.5-11.1); PLATELET COUNT 130 10^3/uL (134-434); RDW 15.2 % (11.9-15.9); WHITE BLOOD COUNT 10.7 K/mm3 (4.0-10.0)
[2024-05-06 07:52] LABS: POTASSIUM 3.6 mmol/L (3.5-5.1)
[2024-05-06 08:05] LABS: CALCIUM 9.1 mg/dL (8.5-10.1)
[2024-05-06 08:08] LABS: CREATININE 0.7 mg/dL (0.55-1.3)
[2024-05-06 08:09] LABS: PHOSPHOROUS 2.7 mg/dL (2.5-4.9)
[2024-05-06 10:58] LABS: ARTERIAL BLD GAS O2 SATURATION 96.6 % (95-98); ARTERIAL BLOOD GAS BASE EXCESS 5.4 mmol/L (-2-2); ARTERIAL BLOOD GAS PO2 101.9 mmHg (80-100); ARTERIAL BLOOD GAS pH 7.267 (7.350-7.450)
[2024-05-06 11:03] LABS: ALLENS TEST POSITIVE
[2024-05-06] MEDS: MUPIROCIN 2% TOPICAL OINTMENT FOR DECOLONIZATION NS SCH (13:04)
[2024-05-06 13:52] LABS: ALLENS TEST POSITIVE; ARTERIAL BLD GAS O2 SATURATION 95.9 % (95-98); ARTERIAL BLOOD GAS BASE EXCESS 5.9 mmol/L (-2-2); ARTERIAL BLOOD GAS PO2 83.4 mmHg (80-100); ARTERIAL BLOOD GAS pH 7.384 (7.350-7.450)
[2024-05-06 13:53] LABS: VENT MODE S/T; VENT RATE 18
[2024-05-06] MEDS: ALBUTEROL SO4 2.5/IPRATROPIUM 0.5 INH SOL 3 ML VIAL.NEB. NEB SCH (15:15)
[2024-05-06] MEDS: AMINO ACIDS/PROTEIN HYDROLYS 30 ML LIQUID.PKT PO SCH (18:01)
[2024-05-06] MEDS: PIPERACILLIN/TAZOB 3.375 GM 50 ML IVPB SCH (18:05)
[2024-05-06 20:23] LABS: ARTERIAL BLD GAS O2 SATURATION 96.8 % (95-98); ARTERIAL BLOOD GAS PO2 90.8 mmHg (80-100); ARTERIAL BLOOD GAS pH 7.397 (7.350-7.450)
[2024-05-06 20:28] LABS: ALLENS TEST POSITIVE
[2024-05-06] MEDS: CHLORHEXIDINE GLUCONATE 4% CLEANSER FOR DECOLONIZATION TP SCH (21:31)
[2024-05-06] MEDS: ENOXAPARIN NA (PORCINE) 100 MG/1 ML DISP.SYRIN SQ SCH (21:37)
[2024-05-06] MEDS ORDERED: DEXMEDETOMIDINE PREMIX 400 MCG/100 ML BAG IVPB ONE (23:06)
[2024-05-06] MEDS: DEXMEDETOMIDINE PREMIX 400 MCG/100 ML BAG IVPB SCH (23:50)
[2024-05-07] MEDS ORDERED: DEXMEDETOMIDINE IN 0.9 % NACL 400 MCG/100 ML BAG IVPB SCH (00:15)
[2024-05-07] MEDS: PIPERACILLIN/TAZOB 3.375 GM 3.375 GM in DEXTROSE 5%-WATER - 50 ML IVPB SCH (01:28)
[2024-05-07 05:42] LABS: ARTERIAL BLD GAS O2 SATURATION 97.3 % (95-98); ARTERIAL BLOOD GAS BASE EXCESS 7.4 mmol/L (-2-2); ARTERIAL BLOOD GAS PO2 97.6 mmHg (80-100); ARTERIAL BLOOD GAS pH 7.408 (7.350-7.450)
[2024-05-07 05:46] LABS: PT'S TEMP EPAP6
[2024-05-07 06:44] LABS: HEMATOCRIT 48.5 % (35.4-49); HEMOGLOBIN 15.2 GM/dL (11.7-16.9); MCH 27.1 pg (25.7-33.7); MCHC 31.3 g/dl (32.0-35.9); MEAN CELL VOLUME 86.8 fl (80-96); MEAN PLT VOLUME 8.4 fl (7.5-11.1); PLATELET COUNT 98 10^3/uL (134-434); RBC 5.59 M/mm3 (4.00-5.60); RDW 15.6 % (11.9-15.9); WHITE BLOOD COUNT 9.5 K/mm3 (4.0-10.0)
[2024-05-07 07:07] LABS: POTASSIUM 3.3 mmol/L (3.5-5.1)
[2024-05-07 07:13] LABS: CALCIUM 8.4 mg/dL (8.5-10.1)
[2024-05-07 07:14] LABS: ALBUMIN 2.9 g/dl (3.4-5.0); MAGNESIUM 2.1 mg/dL (1.8-2.4)
[2024-05-07 07:17] LABS: CREATININE 0.8 mg/dL (0.55-1.3); TOT PROT 5.8 g/dl (6.4-8.2)
[2024-05-07] MEDS ORDERED: AMINO ACIDS 4.25%/D5W 1,000 ML IV SCH (09:00)
[2024-05-07 10:07] LABS: ERYTHROPOIETIN 4.7 mIU/mL (2.6-18.5)
[2024-05-07] MEDS: DOCUSATE SODIUM 100 MG CAPSULE (FP) PO SCH (10:35)
[2024-05-07] MEDS: ASCORBIC ACID 500 MG TABLET (FP) PO SCH (11:27)
[2024-05-07] MEDS: POLYETHYLENE GLYCOL (HEALTHYLAX) 3350 17 GM PACKET PO SCH (11:27)
[2024-05-07] MEDS: ZINC SULFATE 220 MG CAPSULE (FP) PO SCH (11:27)
[2024-05-07] MEDS: METOPROLOL TARTRATE 5 MG/5 ML VIAL IVPUSH PRN (11:37)
[2024-05-07] MEDS: AMINO ACIDS 4.25%/D5W 1,000 ML IV SCH (12:42)
[2024-05-07] MEDS: POTASSIUM PHOSPHATE 15 MM in DEXTROSE 5%-WATER - 100 ML IVPB ONE (12:44)
[2024-05-07 13:09] LABS: VENOUS BASE EXCESS 5.2 mmol/L (-2-2); VENOUS O2 SATURATION 81.7 % (70-80); VENOUS PCO2 69.5 mmHg (38-52); VENOUS PH 7.315 (7.310-7.410)
[2024-05-07] MEDS: QUEtiapine FUMARATE 25 MG TABLET PO SCH ×2 (21:29→22:00)
[2024-05-08 06:29] LABS: BASO % 0.3 % (0-2.0); EOS % 3.9 % (0-4.5); HEMATOCRIT 46.7 % (35.4-49); HEMOGLOBIN 14.9 GM/dL (11.7-16.9); LYMPH % 13.5 % (8-40); MCH 27.4 pg (25.7-33.7); MCHC 31.8 g/dl (32.0-35.9); MEAN CELL VOLUME 86.2 fl (80-96); MEAN PLT VOLUME 8.1 fl (7.5-11.1); MONO % 7.8 % (3.8-10.2); NEUT % 74.5 % (42.8-82.8); PLATELET COUNT 92 10^3/uL (134-434); RBC 5.41 M/mm3 (4.00-5.60); RDW 15.2 % (11.9-15.9); WHITE BLOOD COUNT 8.3 K/mm3 (4.0-10.0)
[2024-05-08 06:48] LABS: POTASSIUM 3.2 mmol/L (3.5-5.1)
[2024-05-08 06:53] LABS: CALCIUM 8.4 mg/dL (8.5-10.1)
[2024-05-08 06:55] LABS: ALBUMIN 2.8 g/dl (3.4-5.0); BLOOD UREA NITROGEN 26.9 mg/dL (7-18); MAGNESIUM 1.9 mg/dL (1.8-2.4)
[2024-05-08 06:57] LABS: BILIRUBIN,TOTAL 0.8 mg/dL (0.2-1); CREATININE 0.5 mg/dL (0.55-1.3); PHOSPHOROUS 1.7 mg/dL (2.5-4.9); TOT PROT 5.7 g/dl (6.4-8.2)
[2024-05-08] MEDS ORDERED: SODIUM PHOSPHATE - 0 MM in SODIUM CHLORIDE 250 ML IVPB ONE (08:39)
[2024-05-08] MEDS: POTASSIUM CHLORIDE ORAL LIQUID 20 MEQ/15 ML PO ONE (09:25)
[2024-05-08] MEDS: metoPROLOL SUCCINATE 25 MG TAB.SR.24H (FP) PO SCH (09:26)
[2024-05-08] MEDS ORDERED: NAPH,MB-DB/K PH,MBDB POWDER PACKET PO SCH (10:00)
[2024-05-08] MEDS: POTASSIUM PHOSPHATE 15 MM in DEXTROSE 5%-WATER - 100 ML IVPB ONE ×2 (11:25)
[2024-05-08] MEDS: ALBUTEROL SO4 0.083% IH SOL 2.5 MG/3 ML VIAL.NEB. NEB SCH (11:40)
[2024-05-08] MEDS: ACETYLCYSTEINE 20% 200MG/ML 4 ML VIAL *FOR ORAL / INH USE ONLY NEB SCH (11:40)
[2024-05-09] MEDS ORDERED: POTASSIUM CHLORIDE TABS 20 MEQ TABLET.ER (FP) PO ONE (07:58)
[2024-05-09 11:21] LABS: ARTERIAL BLD GAS O2 SATURATION 98.6 % (95-98); ARTERIAL BLOOD GAS BASE EXCESS 6.9 mmol/L (-2-2); ARTERIAL BLOOD GAS PO2 138.9 mmHg (80-100); ARTERIAL BLOOD GAS pH 7.347 (7.350-7.450)
[2024-05-09 11:22] LABS: ALLENS TEST POSITIVE
[2024-05-09 11:26] LABS: BASO % 0.8 % (0-2.0); EOS % 3.9 % (0-4.5); HEMATOCRIT 47.6 % (35.4-49); HEMOGLOBIN 15.3 GM/dL (11.7-16.9); LYMPH % 9.4 % (8-40); MCH 27.6 pg (25.7-33.7); MCHC 32.1 g/dl (32.0-35.9); MEAN CELL VOLUME 85.9 fl (80-96); MEAN PLT VOLUME 8.4 fl (7.5-11.1); MONO % 7.8 % (3.8-10.2); NEUT % 78.1 % (42.8-82.8); PLATELET COUNT 99 10^3/uL (134-434); RBC 5.54 M/mm3 (4.00-5.60); RDW 15.5 % (11.9-15.9); WHITE BLOOD COUNT 7.5 K/mm3 (4.0-10.0)
[2024-05-09 11:39] LABS: POTASSIUM 3.9 mmol/L (3.5-5.1)
[2024-05-09 11:41] LABS: ALBUMIN 2.9 g/dl (3.4-5.0); BLOOD UREA NITROGEN 18.2 mg/dL (7-18); CALCIUM 8.4 mg/dL (8.5-10.1)
[2024-05-09 11:44] LABS: CREATININE 0.5 mg/dL (0.55-1.3)
[2024-05-09 11:45] LABS: PHOSPHOROUS 2.7 mg/dL (2.5-4.9)
[2024-05-09 11:46] LABS: BILIRUBIN,TOTAL 0.7 mg/dL (0.2-1); TOT PROT 6.2 g/dl (6.4-8.2)
[2024-05-09] MEDS: POTASSIUM PHOSPHATE 15 MM in DEXTROSE 5%-WATER - 100 ML IVPB ONE (11:50)
[2024-05-09] MEDS ORDERED: MELATONIN 5 MG TABLETS PO PRN (23:39)
[2024-05-10] MEDS: hydrOXYzine HCL 50 MG/ML VIAL IM ONE (00:05)
[2024-05-10] MEDS: ACETAMINOPHEN 500 MG TABLET (FP) PO PRN (02:23)
[2024-05-10] MEDS: FUROSEMIDE 40 MG/4 ML INJECTABLE VIAL IVPUSH ONE ×2 (03:05→14:42)
[2024-05-10] MEDS ORDERED: RAPID SEQUENCE INTUBATION KIT NR ONE (03:08)
[2024-05-10 03:11] LABS: ARTERIAL BLD GAS O2 SATURATION 61.1 % (95-98); ARTERIAL BLOOD GAS BASE EXCESS 3.9 mmol/L (-2-2); ARTERIAL BLOOD GAS PO2 50.1 mmHg (80-100)
[2024-05-10 03:14] LABS: ARTERIAL BLOOD GAS PCO2 > 148.50 mmHg (35-45); ARTERIAL BLOOD GAS pH 7.001 (7.350-7.450)
[2024-05-10] MEDS: METOPROLOL TARTRATE 5 MG/5 ML VIAL IVPUSH ONE (03:48)
[2024-05-10] MEDS: PROPOFOL 200 MG/20 ML VIAL IVPUSH ONE (04:13)
[2024-05-10] MEDS: SUCCINYLCHOLINE CHLORIDE 200 MG/10 ML VIAL IVPUSH ONE (04:14)
[2024-05-10] MEDS ORDERED: ACETAMINOPHEN 500 MG TABLET (FP) PO PRN (04:29)
[2024-05-10] MEDS: FENTANYL NS IVPB 500 MCG/100 ML BAG IVPB SCH (04:38)
[2024-05-10] MEDS: PROPOFOL 1,000,000 MCG/100 ML VIAL IVPB SCH (04:38)
[2024-05-10] MEDS: methylPREDNISolone NA SUCC 40 MG/1 ML VIAL IVPUSH SCH (04:39)
[2024-05-10] MEDS: MIDAZOLAM IN 0.9 % SOD.CHLORID 100 MG/100 ML PLAST..BAG IVPB SCH (04:40)
[2024-05-10 05:26] LABS: POTASSIUM 4.5 mmol/L (3.5-5.1)
[2024-05-10 05:29] LABS: ALBUMIN 3.2 g/dl (3.4-5.0); BLOOD UREA NITROGEN 17.7 mg/dL (7-18); CALCIUM 9.2 mg/dL (8.5-10.1)
[2024-05-10 05:33] LABS: CREATININE 0.8 mg/dL (0.55-1.3)
[2024-05-10 05:34] LABS: BILIRUBIN,TOTAL 1.1 mg/dL (0.2-1); TOT PROT 6.7 g/dl (6.4-8.2)
[2024-05-10 05:41] LABS: LACTIC ACID 2.2 mmol/L (0.4-2.0)
[2024-05-10 05:42] LABS: HEMATOCRIT 51.3 % (35.4-49); HEMOGLOBIN 16.1 GM/dL (11.7-16.9); MCH 27.5 pg (25.7-33.7); MCHC 31.4 g/dl (32.0-35.9); MEAN CELL VOLUME 87.6 fl (80-96); MEAN PLT VOLUME 9.1 fl (7.5-11.1); PLATELET COUNT 112 10^3/uL (134-434); RBC 5.86 M/mm3 (4.00-5.60); RDW 15.5 % (11.9-15.9); WHITE BLOOD COUNT 10.9 K/mm3 (4.0-10.0)
[2024-05-10 06:29] LABS: ARTERIAL BLD GAS O2 SATURATION 97.7 % (95-98); ARTERIAL BLOOD GAS BASE EXCESS 12.3 mmol/L (-2-2); ARTERIAL BLOOD GAS PO2 88.4 mmHg (80-100); ARTERIAL BLOOD GAS pH 7.568 (7.350-7.450)
[2024-05-10 06:31] LABS: VENT MODE VAC; VENT RATE 20
[2024-05-10] MEDS: ALBUTEROL SO4 0.083% IH SOL 2.5 MG/3 ML VIAL.NEB. NEB SCH (07:40)
[2024-05-10] MEDS: FLUTICASONE/UMECLIDIN/VILANTER(200-62.5-25 TRELEGY ELLIPTA) INAHLER IH SCH (08:39)
[2024-05-10] MEDS: ZINC SULFATE 220 MG CAPSULE (FP) PO SCH (09:56)
[2024-05-10] MEDS: metoPROLOL SUCCINATE 25 MG TAB.SR.24H (FP) PO SCH (09:56)
[2024-05-10] MEDS: DOCUSATE SODIUM 100 MG CAPSULE (FP) PO SCH (09:56)
[2024-05-10] MEDS: AMINO ACIDS/PROTEIN HYDROLYS 30 ML LIQUID.PKT PO SCH (09:57)
[2024-05-10] MEDS: POLYETHYLENE GLYCOL (HEALTHYLAX) 3350 17 GM PACKET PO SCH (09:57)
[2024-05-10] MEDS: ASCORBIC ACID 500 MG TABLET (FP) PO SCH (09:57)
[2024-05-10] MEDS ORDERED: FUROSEMIDE 40 MG/4 ML INJECTABLE VIAL IVPUSH SCH ×3 (10:00→14:00)
[2024-05-10] MEDS ORDERED: ENOXAPARIN NA (PORCINE) 100 MG/1 ML DISP.SYRIN SQ SCH (10:00)
[2024-05-10] MEDS: MUPIROCIN 2% TOPICAL OINTMENT FOR DECOLONIZATION NS SCH ×2 (10:30→10:31)
[2024-05-10] MEDS: ENOXAPARIN NA (PORCINE) 100 MG/1 ML DISP.SYRIN SQ SCH (10:34)
[2024-05-10] MEDS ORDERED: LEVOTHYROXINE NA 50 MCG TABLET (FP) PO SCH (14:31)
[2024-05-10] MEDS ORDERED: CHLORHEXIDINE GLUCONATE 4% CLEANSER FOR DECOLONIZATION TP SCH (22:00)
[2024-05-10] MEDS: CHLORHEXIDINE GLUCONATE 4% CLEANSER FOR DECOLONIZATION TP SCH (22:52)
[2024-05-10] MEDS: QUEtiapine FUMARATE 25 MG TABLET PO SCH (22:52)
[2024-05-11 06:18] LABS: ARTERIAL BLD GAS O2 SATURATION 99.8 % (95-98); ARTERIAL BLOOD GAS BASE EXCESS 8.2 mmol/L (-2-2); ARTERIAL BLOOD GAS PO2 412.5 mmHg (80-100); ARTERIAL BLOOD GAS pH 7.475 (7.350-7.450)
[2024-05-11 06:32] LABS: ALLENS TEST POSITIVE; VENT MODE A/C; VENT RATE 18
[2024-05-11 06:34] LABS: BASO % 0.4 % (0-2.0); EOS % 0.1 % (0-4.5); HEMATOCRIT 46.9 % (35.4-49); HEMOGLOBIN 15.1 GM/dL (11.7-16.9); LYMPH % 7.2 % (8-40); MCH 27.4 pg (25.7-33.7); MCHC 32.2 g/dl (32.0-35.9); MEAN CELL VOLUME 85.3 fl (80-96); MEAN PLT VOLUME 8.9 fl (7.5-11.1); MONO % 6.8 % (3.8-10.2); NEUT % 85.5 % (42.8-82.8); PLATELET COUNT 129 10^3/uL (134-434); RDW 15.1 % (11.9-15.9); WHITE BLOOD COUNT 9.2 K/mm3 (4.0-10.0)
[2024-05-11 06:54] LABS: POTASSIUM 4.1 mmol/L (3.5-5.1)
[2024-05-11 06:58] LABS: CALCIUM 9.4 mg/dL (8.5-10.1)
[2024-05-11 06:59] LABS: ALBUMIN 3.1 g/dl (3.4-5.0); MAGNESIUM 2.2 mg/dL (1.8-2.4)
[2024-05-11 07:02] LABS: CREATININE 1.3 mg/dL (0.55-1.3); PHOSPHOROUS 3.9 mg/dL (2.5-4.9)
[2024-05-11 07:03] LABS: BILIRUBIN,TOTAL 0.9 mg/dL (0.2-1)
[2024-05-11 07:04] LABS: TOT PROT 6.5 g/dl (6.4-8.2)
[2024-05-11 07:08] LABS: BLOOD UREA NITROGEN 49.3 mg/dL (7-18)
[2024-05-11] MEDS: METOPROLOL TARTRATE 5 MG/5 ML VIAL IVPUSH PRN (11:27)
[2024-05-11] MEDS ORDERED: RAPID SEQUENCE INTUBATION KIT NR ONE ×2 (12:41→17:43)
[2024-05-11] MEDS ORDERED: FUROSEMIDE 40 MG/4 ML INJECTABLE VIAL ONE (12:42)
[2024-05-11] MEDS ORDERED: FLUMAZENIL 0.5 MG/5 ML VIAL ONE (12:46)
[2024-05-11] MEDS: FLUMAZENIL 0.5 MG/5 ML VIAL IVPUSH ONE ×3 (14:00→14:01)
[2024-05-11] MEDS: FUROSEMIDE 40 MG/4 ML INJECTABLE VIAL IVPUSH ONE (15:15)
[2024-05-11] MEDS: FLUTICASONE/UMECLIDIN/VILANTER(200-62.5-25 TRELEGY ELLIPTA) INAHLER IH SCH (15:28)
[2024-05-11 17:36] LABS: BASO % 0.3 % (0-2.0); EOS % 0.2 % (0-4.5); HEMATOCRIT 52.5 % (35.4-49); HEMOGLOBIN 16.6 GM/dL (11.7-16.9); LYMPH % 13.4 % (8-40); MCHC 31.7 g/dl (32.0-35.9); MEAN CELL VOLUME 85.4 fl (80-96); MEAN PLT VOLUME 8.3 fl (7.5-11.1); MONO % 8.4 % (3.8-10.2); NEUT % 77.7 % (42.8-82.8); PLATELET COUNT 151 10^3/uL (134-434); RBC 6.14 M/mm3 (4.00-5.60); RDW 15.9 % (11.9-15.9); WHITE BLOOD COUNT 12.4 K/mm3 (4.0-10.0)
[2024-05-11] MEDS: PIPERACILLIN/TAZOB 3.375 GM 50 ML IVPB SCH (17:50)
[2024-05-11] MEDS ORDERED: PIPERACILLIN/TAZOB 3.375 GM 50 ML IVPB SCH (18:00)
[2024-05-11 18:02] LABS: POTASSIUM 4.1 mmol/L (3.5-5.1)
[2024-05-11 18:04] LABS: ALBUMIN 3.7 g/dl (3.4-5.0); CALCIUM 9.6 mg/dL (8.5-10.1)
[2024-05-11 18:05] LABS: MAGNESIUM 2.3 mg/dL (1.8-2.4)
[2024-05-11 18:08] LABS: CREATININE 1.4 mg/dL (0.55-1.3); PHOSPHOROUS 5.7 mg/dL (2.5-4.9)
[2024-05-11 18:09] LABS: BILIRUBIN,TOTAL 1.1 mg/dL (0.2-1); TOT PROT 7.5 g/dl (6.4-8.2)
[2024-05-11 18:10] LABS: ARTERIAL BLD GAS O2 SATURATION 95.6 % (95-98); ARTERIAL BLOOD GAS BASE EXCESS 6.7 mmol/L (-2-2); ARTERIAL BLOOD GAS PO2 82.8 mmHg (80-100)
[2024-05-12 05:50] LABS: ARTERIAL BLD GAS O2 SATURATION 99.1 % (95-98); ARTERIAL BLOOD GAS BASE EXCESS 7.3 mmol/L (-2-2); ARTERIAL BLOOD GAS PO2 176.9 mmHg (80-100); ARTERIAL BLOOD GAS pH 7.342 (7.350-7.450)
[2024-05-12 05:53] LABS: ALLENS TEST POSITIVE
[2024-05-12 05:55] LABS: VENT MODE AC; VENT RATE 12
[2024-05-12 06:50] LABS: BASO % 0.3 % (0-2.0); EOS % 0.8 % (0-4.5); HEMATOCRIT 47.6 % (35.4-49); HEMOGLOBIN 15.3 GM/dL (11.7-16.9); LYMPH % 11.9 % (8-40); MCH 27.5 pg (25.7-33.7); MCHC 32.2 g/dl (32.0-35.9); MEAN CELL VOLUME 85.5 fl (80-96); MEAN PLT VOLUME 8.9 fl (7.5-11.1); MONO % 8.5 % (3.8-10.2); NEUT % 78.5 % (42.8-82.8); PLATELET COUNT 110 10^3/uL (134-434); RBC 5.57 M/mm3 (4.00-5.60); RDW 15.1 % (11.9-15.9); WHITE BLOOD COUNT 10.3 K/mm3 (4.0-10.0)
[2024-05-12 07:05] LABS: POTASSIUM 3.4 mmol/L (3.5-5.1)
[2024-05-12 07:08] LABS: ALBUMIN 3.2 g/dl (3.4-5.0)
[2024-05-12 07:09] LABS: BLOOD UREA NITROGEN 57.4 mg/dL (7-18); MAGNESIUM 2.4 mg/dL (1.8-2.4)
[2024-05-12 07:11] LABS: CREATININE 1.3 mg/dL (0.55-1.3)
[2024-05-12 07:12] LABS: PHOSPHOROUS 3.9 mg/dL (2.5-4.9)
[2024-05-12 07:15] LABS: TOT PROT 6.5 g/dl (6.4-8.2)
[2024-05-12] MEDS: KCL 10 MEQ IVPB 10 MEQ/100 ML INFUS.BAG IVPB SCH (08:57)
[2024-05-12] MEDS: FUROSEMIDE 40 MG/4 ML INJECTABLE VIAL IVPUSH SCH (14:49)
[2024-05-12] MEDS: PIPERACILLIN/TAZOB 3.375 GM 50 ML IVPB SCH (17:54)
[2024-05-13 07:29] LABS: BASO % 0.3 % (0-2.0); EOS % 1.6 % (0-4.5); HEMATOCRIT 46.5 % (35.4-49); LYMPH % 12.5 % (8-40); MCH 27.4 pg (25.7-33.7); MCHC 32.4 g/dl (32.0-35.9); MEAN CELL VOLUME 84.6 fl (80-96); MEAN PLT VOLUME 8.8 fl (7.5-11.1); MONO % 6.2 % (3.8-10.2); NEUT % 79.4 % (42.8-82.8); PLATELET COUNT 92 10^3/uL (134-434); RBC 5.49 M/mm3 (4.00-5.60); RDW 15.4 % (11.9-15.9); WHITE BLOOD COUNT 9.5 K/mm3 (4.0-10.0)
[2024-05-13 07:47] LABS: ALBUMIN 2.9 g/dl (3.4-5.0); CALCIUM 8.9 mg/dL (8.5-10.1)
[2024-05-13 07:48] LABS: BLOOD UREA NITROGEN 50.7 mg/dL (7-18); MAGNESIUM 2.2 mg/dL (1.8-2.4)
[2024-05-13 07:50] LABS: PHOSPHOROUS 2.1 mg/dL (2.5-4.9)
[2024-05-13 07:51] LABS: CREATININE 1.2 mg/dL (0.55-1.3)
[2024-05-13 07:52] LABS: BILIRUBIN,TOTAL 1.6 mg/dL (0.2-1)
[2024-05-13] MEDS: KCL 10 MEQ IVPB 10 MEQ/100 ML INFUS.BAG IVPB SCH (09:52)
[2024-05-13] MEDS: NAPH,MB-DB/K PH,MBDB POWDER PACKET GT SCH (13:51)
[2024-05-14] MEDS: MIDODRINE HCL 5 MG TABLET PO SCH (02:16)
[2024-05-14 08:25] LABS: BASO % 0.5 % (0-2.0); EOS % 3.7 % (0-4.5); HEMATOCRIT 46.6 % (35.4-49); HEMOGLOBIN 14.8 GM/dL (11.7-16.9); MCH 27.2 pg (25.7-33.7); MCHC 31.8 g/dl (32.0-35.9); MEAN CELL VOLUME 85.3 fl (80-96); MEAN PLT VOLUME 10.4 fl (7.5-11.1); MONO % 7.3 % (3.8-10.2); NEUT % 72.5 % (42.8-82.8); PLATELET COUNT 104 10^3/uL (134-434); RBC 5.47 M/mm3 (4.00-5.60); RDW 15.1 % (11.9-15.9); WHITE BLOOD COUNT 9.7 K/mm3 (4.0-10.0)
[2024-05-14 08:32] LABS: CHLORIDE 102 mmol/L (98-107); SODIUM 144 mmol/L (136-145)
[2024-05-14 08:35] LABS: CALCIUM 8.6 mg/dL (8.5-10.1)
[2024-05-14 08:36] LABS: ALBUMIN 2.7 g/dl (3.4-5.0); BLOOD UREA NITROGEN 47.7 mg/dL (7-18); CO2 36 mmol/L (21-32); GLUCOSE,RANDOM 139 mg/dL (74-106); MAGNESIUM 2.2 mg/dL (1.8-2.4)
[2024-05-14 08:39] LABS: PHOSPHOROUS 2.7 mg/dL (2.5-4.9); SGOT/AST 27 U/L (15-37); SGPT/ALT 38 U/L (13-61)
[2024-05-14 08:40] LABS: BILIRUBIN,TOTAL 1.3 mg/dL (0.2-1); TOT PROT 6.1 g/dl (6.4-8.2)
[2024-05-14 08:41] LABS: ALK PHOS 89 U/L (45-117); ANION GAP 6 mmol/L (4-13); POTASSIUM 2.7 mmol/L (3.5-5.1)
[2024-05-14] MEDS: KCL 10 MEQ IVPB 10 MEQ/100 ML INFUS.BAG IVPB SCH (09:31)
[2024-05-14] MEDS: POTASSIUM CHLORIDE ORAL LIQUID 20 MEQ/15 ML PO ONE (09:32)
[2024-05-14] MEDS ORDERED: PIPERACILLIN/TAZOB 3.375 GM 3.375 GM in DEXTROSE 5%-WATER - 50 ML IVPB SCH (10:00)
[2024-05-14] MEDS: PIPERACILLIN/TAZOB 3.375 GM 50 ML IVPB ONE (12:25)
[2024-05-14] MEDS ORDERED: DEXMEDETOMIDINE PREMIX 400 MCG/100 ML BAG IVPB SCH (17:15)
[2024-05-14] MEDS: AMINO ACIDS/PROTEIN HYDROLYS 30 ML LIQUID.PKT NGT SCH (17:31)
[2024-05-14] MEDS: PIPERACILLIN/TAZOB 3.375 GM 50 ML IVPB SCH (17:35)
[2024-05-14 19:04] LABS: POTASSIUM 3.4 mmol/L (3.5-5.1)
[2024-05-14 19:05] LABS: CALCIUM 8.5 mg/dL (8.5-10.1)
[2024-05-14 19:06] LABS: BLOOD UREA NITROGEN 46.5 mg/dL (7-18)
[2024-05-14 19:09] LABS: CREATININE 0.9 mg/dL (0.55-1.3)
[2024-05-14] MEDS ORDERED: SODIUM CHLORIDE FOR INHALATION 3 ML VIAL.NEB IH PRN (19:43)
[2024-05-14] MEDS ORDERED: DOCUSATE NA 100 MG/10 ML UNIT-DOSE CUPS NGT PRN (19:44)
[2024-05-14 21:00] LABS: ARTERIAL BLD GAS O2 SATURATION 98.9 % (95-98); ARTERIAL BLOOD GAS BASE EXCESS 8.9 mmol/L (-2-2); ARTERIAL BLOOD GAS PO2 137.7 mmHg (80-100); ARTERIAL BLOOD GAS pH 7.503 (7.350-7.450)
[2024-05-14 21:01] LABS: ALLENS TEST NEGATIVE
[2024-05-14 21:02] LABS: VENT MODE A/C
[2024-05-14 21:08] LABS: VENT RATE 18
[2024-05-14] MEDS: DOCUSATE NA 100 MG/10 ML UNIT-DOSE CUPS NGT SCH (21:29)
[2024-05-15 06:32] LABS: ARTERIAL BLD GAS O2 SATURATION 98.9 % (95-98); ARTERIAL BLOOD GAS BASE EXCESS 9.6 mmol/L (-2-2); ARTERIAL BLOOD GAS PO2 141.6 mmHg (80-100); ARTERIAL BLOOD GAS pH 7.476 (7.350-7.450)
[2024-05-15 08:13] LABS: BASO % 0.6 % (0-2.0); EOS % 5.5 % (0-4.5); HEMATOCRIT 43.4 % (35.4-49); HEMOGLOBIN 13.9 GM/dL (11.7-16.9); LYMPH % 15.4 % (8-40); MCH 27.4 pg (25.7-33.7); MCHC 32.1 g/dl (32.0-35.9); MEAN CELL VOLUME 85.5 fl (80-96); MEAN PLT VOLUME 8.8 fl (7.5-11.1); MONO % 6.9 % (3.8-10.2); NEUT % 71.6 % (42.8-82.8); PLATELET COUNT 100 10^3/uL (134-434); RBC 5.07 M/mm3 (4.00-5.60); RDW 15.2 % (11.9-15.9); WHITE BLOOD COUNT 9.2 K/mm3 (4.0-10.0)
[2024-05-15 08:31] LABS: POTASSIUM 3.1 mmol/L (3.5-5.1)
[2024-05-15 08:33] LABS: CALCIUM 8.5 mg/dL (8.5-10.1)
[2024-05-15 08:34] LABS: ALBUMIN 2.6 g/dl (3.4-5.0); MAGNESIUM 2.2 mg/dL (1.8-2.4)
[2024-05-15 08:37] LABS: CREATININE 1.2 mg/dL (0.55-1.3); PHOSPHOROUS 3.4 mg/dL (2.5-4.9)
[2024-05-15 08:38] LABS: BILIRUBIN,TOTAL 1.2 mg/dL (0.2-1); TOT PROT 5.8 g/dl (6.4-8.2)
[2024-05-15] MEDS: KCL 10 MEQ IVPB 10 MEQ/100 ML INFUS.BAG IVPB SCH (09:24)
[2024-05-15] MEDS: POTASSIUM CHLORIDE ORAL LIQUID 20 MEQ/15 ML PO ONE (09:33)
[2024-05-15] MEDS: LACTATED RINGERS SOLUTION 1,000 ML/1,000 ML INFUS.BAG IV STA (18:14)
[2024-05-15] MEDS ORDERED: NOREPINEPHRINE BITARTRATE 4 MG/4 ML ML IV ONE (18:54)
[2024-05-15] MEDS: NOREPINEPHRINE BITARTRATE 4,000 MCG in DEXTROSE 5%-WATER - 496 ML IV SCH (19:01)
[2024-05-15] MEDS: MIDAZOLAM IN 0.9 % SOD.CHLORID 100 MG/100 ML PLAST..BAG IVPB SCH (19:53)
[2024-05-16 06:17] LABS: ARTERIAL BLD GAS O2 SATURATION 99.2 % (95-98); ARTERIAL BLOOD GAS BASE EXCESS 8.3 mmol/L (-2-2); ARTERIAL BLOOD GAS PO2 181.7 mmHg (80-100)
[2024-05-16 06:27] LABS: ALLENS TEST POSITIVE
[2024-05-16 06:28] LABS: VENT RATE 14
[2024-05-16] MEDS ORDERED: MIDODRINE HCL 5 MG TABLET PO SCH ×2 (07:30→08:45)
[2024-05-16 08:22] LABS: HEMATOCRIT 41.6 % (35.4-49); HEMOGLOBIN 13.5 GM/dL (11.7-16.9); MCH 27.8 pg (25.7-33.7); MCHC 32.4 g/dl (32.0-35.9); MEAN CELL VOLUME 85.9 fl (80-96); MEAN PLT VOLUME 9.3 fl (7.5-11.1); PLATELET COUNT 101 10^3/uL (134-434); RBC 4.85 M/mm3 (4.00-5.60); RDW 15.5 % (11.9-15.9); WHITE BLOOD COUNT 8.2 K/mm3 (4.0-10.0)
[2024-05-16 08:37] LABS: POTASSIUM 3.1 mmol/L (3.5-5.1)
[2024-05-16 08:38] LABS: BLOOD UREA NITROGEN 36.2 mg/dL (7-18); CALCIUM 7.8 mg/dL (8.5-10.1); MAGNESIUM 2.1 mg/dL (1.8-2.4)
[2024-05-16 08:41] LABS: PHOSPHOROUS 2.9 mg/dL (2.5-4.9)
[2024-05-16] MEDS: KCL 10 MEQ IVPB 10 MEQ/100 ML INFUS.BAG IVPB SCH (09:27)
[2024-05-16] MEDS: POTASSIUM CHLORIDE TABS 20 MEQ TABLET.ER (FP) PO ONE (09:30)
[2024-05-16] MEDS: MIDODRINE HCL 2.5 MG TABLET PO SCH (14:06)
[2024-05-17 06:56] LABS: BASO % 1.1 % (0-2.0); EOS % 7.5 % (0-4.5); HEMATOCRIT 41.6 % (35.4-49); HEMOGLOBIN 13.3 GM/dL (11.7-16.9); LYMPH % 22.9 % (8-40); MCH 27.4 pg (25.7-33.7); MEAN CELL VOLUME 85.5 fl (80-96); MEAN PLT VOLUME 8.9 fl (7.5-11.1); MONO % 9.3 % (3.8-10.2); NEUT % 59.2 % (42.8-82.8); PLATELET COUNT 105 10^3/uL (134-434); RBC 4.87 M/mm3 (4.00-5.60); RDW 15.2 % (11.9-15.9); WHITE BLOOD COUNT 7.9 K/mm3 (4.0-10.0)
[2024-05-17 07:06] LABS: POTASSIUM 3.3 mmol/L (3.5-5.1)
[2024-05-17 07:11] LABS: CALCIUM 8.5 mg/dL (8.5-10.1)
[2024-05-17 07:12] LABS: ALBUMIN 2.4 g/dl (3.4-5.0); BLOOD UREA NITROGEN 41.1 mg/dL (7-18); MAGNESIUM 2.1 mg/dL (1.8-2.4)
[2024-05-17 07:15] LABS: PHOSPHOROUS 2.7 mg/dL (2.5-4.9)
[2024-05-17 07:16] LABS: TOT PROT 5.7 g/dl (6.4-8.2)
[2024-05-17] MEDS: KCL 10 MEQ IVPB 10 MEQ/100 ML INFUS.BAG IVPB SCH ×2 (10:03→22:44)
[2024-05-17] MEDS: MIDODRINE HCL 5 MG TABLET PO SCH (12:17)
[2024-05-17] MEDS: LACTATED RINGERS SOLUTION 1,000 ML/1,000 ML INFUS.BAG IV STA (12:18)
[2024-05-17 21:38] LABS: POTASSIUM 3.4 mmol/L (3.5-5.1)
[2024-05-17 21:39] LABS: CALCIUM 8.6 mg/dL (8.5-10.1)
[2024-05-17 21:40] LABS: BLOOD UREA NITROGEN 35.2 mg/dL (7-18)
[2024-05-17] MEDS ORDERED: DEXMEDETOMIDINE IN 0.9 % NACL 400 MCG/100 ML BAG IVPB SCH (21:45)
[2024-05-17] MEDS: DEXMEDETOMIDINE PREMIX 400 MCG/100 ML BAG IVPB SCH (22:45)
[2024-05-18 06:14] LABS: BASO % 0.5 % (0-2.0); EOS % 6.5 % (0-4.5); HEMATOCRIT 41.8 % (35.4-49); HEMOGLOBIN 13.2 GM/dL (11.7-16.9); LYMPH % 18.6 % (8-40); MCH 27.3 pg (25.7-33.7); MCHC 31.5 g/dl (32.0-35.9); MEAN CELL VOLUME 86.5 fl (80-96); MEAN PLT VOLUME 7.8 fl (7.5-11.1); NEUT % 64.4 % (42.8-82.8); PLATELET COUNT 87 10^3/uL (134-434); RBC 4.83 M/mm3 (4.00-5.60); RDW 15.3 % (11.9-15.9); WHITE BLOOD COUNT 6.5 K/mm3 (4.0-10.0)
[2024-05-18 06:26] LABS: POTASSIUM 3.8 mmol/L (3.5-5.1)
[2024-05-18 06:29] LABS: CALCIUM 8.7 mg/dL (8.5-10.1)
[2024-05-18 06:30] LABS: ALBUMIN 2.5 g/dl (3.4-5.0); BLOOD UREA NITROGEN 31.5 mg/dL (7-18); MAGNESIUM 2.4 mg/dL (1.8-2.4)
[2024-05-18 06:33] LABS: BILIRUBIN,TOTAL 0.9 mg/dL (0.2-1); PHOSPHOROUS 3.9 mg/dL (2.5-4.9)
[2024-05-18] MEDS: MIDODRINE HCL 5 MG TABLET PO SCH (11:30)
[2024-05-18] MEDS ORDERED: MIDODRINE HCL 5 MG TABLET PO SCH (14:00)
[2024-05-18] MEDS: DEXMEDETOMIDINE PREMIX 400 MCG/100 ML BAG IVPB SCH (22:35)
[2024-05-19] MEDS: acetaZOLAMIDE 250 MG TABLET NGT ONE (06:34)
[2024-05-19 06:39] LABS: BASO % 0.6 % (0-2.0); EOS % 4.2 % (0-4.5); HEMATOCRIT 45.4 % (35.4-49); HEMOGLOBIN 14.3 GM/dL (11.7-16.9); LYMPH % 11.5 % (8-40); MCH 27.2 pg (25.7-33.7); MCHC 31.5 g/dl (32.0-35.9); MEAN CELL VOLUME 86.3 fl (80-96); MEAN PLT VOLUME 8.1 fl (7.5-11.1); MONO % 10.3 % (3.8-10.2); NEUT % 73.4 % (42.8-82.8); PLATELET COUNT 67 10^3/uL (134-434); RBC 5.25 M/mm3 (4.00-5.60); RDW 15.3 % (11.9-15.9); WHITE BLOOD COUNT 6.6 K/mm3 (4.0-10.0)
[2024-05-19 06:46] LABS: POTASSIUM 3.4 mmol/L (3.5-5.1)
[2024-05-19 06:48] LABS: CALCIUM 8.9 mg/dL (8.5-10.1)
[2024-05-19 06:50] LABS: ALBUMIN 2.7 g/dl (3.4-5.0); BLOOD UREA NITROGEN 26.6 mg/dL (7-18); MAGNESIUM 2.5 mg/dL (1.8-2.4)
[2024-05-19 06:52] LABS: CREATININE 0.9 mg/dL (0.55-1.3); PHOSPHOROUS 3.2 mg/dL (2.5-4.9)
[2024-05-19 06:53] LABS: BILIRUBIN,TOTAL 0.8 mg/dL (0.2-1); TOT PROT 6.6 g/dl (6.4-8.2)
[2024-05-19] MEDS: NAPH,MB-DB/K PH,MBDB POWDER PACKET GT ONE (09:30)
[2024-05-19] MEDS: POTASSIUM CHLORIDE ORAL LIQUID 20 MEQ/15 ML PO ONE (09:30)
[2024-05-19] MEDS: FUROSEMIDE 40 MG/4 ML INJECTABLE VIAL IVPUSH ONE (13:15)
[2024-05-19] MEDS: QUEtiapine FUMARATE 25 MG TABLET GT SCH (21:24)
[2024-05-20] MEDS ORDERED: RAPID SEQUENCE INTUBATION KIT NR ONE (01:06)
[2024-05-20] MEDS: PROPOFOL 1,000,000 MCG/100 ML VIAL IVPB SCH (01:37)
[2024-05-20] MEDS: DEXMEDETOMIDINE PREMIX 400 MCG/100 ML BAG IVPB SCH (01:38)
[2024-05-20 02:01] LABS: ARTERIAL BLD GAS O2 SATURATION 98.8 % (95-98); ARTERIAL BLOOD GAS BASE EXCESS 5.3 mmol/L (-2-2); ARTERIAL BLOOD GAS PO2 169.4 mmHg (80-100); ARTERIAL BLOOD GAS pH 7.256 (7.350-7.450)
[2024-05-20 02:07] LABS: ALLENS TEST POSITIVE; VENT MODE A/C; VENT RATE 20
[2024-05-20 07:37] LABS: BASO % 1.2 % (0-2.0); EOS % 0.7 % (0-4.5); HEMATOCRIT 44.6 % (35.4-49); HEMOGLOBIN 14.3 GM/dL (11.7-16.9); LYMPH % 9.7 % (8-40); MCH 27.8 pg (25.7-33.7); MCHC 32.1 g/dl (32.0-35.9); MEAN CELL VOLUME 86.5 fl (80-96); MEAN PLT VOLUME 8.2 fl (7.5-11.1); MONO % 11.9 % (3.8-10.2); NEUT % 76.5 % (42.8-82.8); PLATELET COUNT 41 10^3/uL (134-434); RBC 5.15 M/mm3 (4.00-5.60); RDW 14.9 % (11.9-15.9); WHITE BLOOD COUNT 6.2 K/mm3 (4.0-10.0)
[2024-05-20 08:31] LABS: ALBUMIN 2.7 g/dl (3.4-5.0); ANION GAP 8 mmol/L (4-13); BLOOD UREA NITROGEN 26.7 mg/dL (7-18); CALCIUM 8.9 mg/dL (8.5-10.1); CHLORIDE 103 mmol/L (98-107); CO2 33 mmol/L (21-32); GLUCOSE,RANDOM 123 mg/dL (74-106); MAGNESIUM 2.1 mg/dL (1.8-2.4); POTASSIUM 3.2 mmol/L (3.5-5.1); SODIUM 145 mmol/L (136-145)
[2024-05-20 08:35] LABS: CREATININE 1.1 mg/dL (0.55-1.3); PHOSPHOROUS 1.1 mg/dL (2.5-4.9); SGOT/AST 23 U/L (15-37); SGPT/ALT 30 U/L (13-61); TOT PROT 6.6 g/dl (6.4-8.2)
[2024-05-20 08:56] LABS: ALK PHOS 100 U/L (45-117)
[2024-05-20 09:43] LABS: ARTERIAL BLD GAS O2 SATURATION 86.3 % (95-98); ARTERIAL BLOOD GAS BASE EXCESS 9.8 mmol/L (-2-2); ARTERIAL BLOOD GAS PO2 43.3 mmHg (80-100); ARTERIAL BLOOD GAS pH 7.579 (7.350-7.450)
[2024-05-20 09:45] LABS: ALLENS TEST POSITIVE; VENT MODE AC; VENT RATE 20
[2024-05-20] MEDS: THIAMINE HCL 200 MG/2 ML VIAL IVPB ONE (16:29)
[2024-05-20] MEDS: POTASSIUM PHOSPHATE 30 MM in DEXTROSE 5%-WATER - 250 ML IVPB ONE (17:40)
[2024-05-21] MEDS: PROPOFOL 1,000,000 MCG/100 ML VIAL IVPB SCH (06:55)
[2024-05-21 07:46] LABS: EOS % 3.9 % (0-4.5); HEMATOCRIT 44.5 % (35.4-49); HEMOGLOBIN 14.4 GM/dL (11.7-16.9); LYMPH % 18.1 % (8-40); MCH 27.4 pg (25.7-33.7); MCHC 32.4 g/dl (32.0-35.9); MEAN CELL VOLUME 84.4 fl (80-96); MEAN PLT VOLUME 9.4 fl (7.5-11.1); MONO % 7.8 % (3.8-10.2); NEUT % 69.2 % (42.8-82.8); RBC 5.27 M/mm3 (4.00-5.60); RDW 14.8 % (11.9-15.9); WHITE BLOOD COUNT 6.1 K/mm3 (4.0-10.0)
[2024-05-21 08:00] LABS: PLATELET COUNT 24 10^3/uL (134-434)
[2024-05-21 08:02] LABS: CALCIUM 8.5 mg/dL (8.5-10.1)
[2024-05-21 08:03] LABS: ALBUMIN 2.5 g/dl (3.4-5.0); CO2 30 mmol/L (21-32); MAGNESIUM 2.1 mg/dL (1.8-2.4)
[2024-05-21 08:06] LABS: CREATININE 1.1 mg/dL (0.55-1.3); PHOSPHOROUS 2.4 mg/dL (2.5-4.9); SGOT/AST 25 U/L (15-37); SGPT/ALT 30 U/L (13-61)
[2024-05-21 08:07] LABS: BILIRUBIN,TOTAL 0.7 mg/dL (0.2-1); TOT PROT 6.3 g/dl (6.4-8.2)
[2024-05-21 08:09] LABS: ALK PHOS 98 U/L (45-117)
[2024-05-21 08:32] LABS: ANION GAP 9 mmol/L (4-13); BLOOD UREA NITROGEN 40.2 mg/dL (7-18); CHLORIDE 105 mmol/L (98-107); GLUCOSE,RANDOM 164 mg/dL (74-106); POTASSIUM 2.2 mmol/L (3.5-5.1); SODIUM 144 mmol/L (136-145)
[2024-05-21] MEDS: KCL 10 MEQ IVPB 10 MEQ/100 ML INFUS.BAG IVPB SCH ×2 (09:03→21:10)
[2024-05-21] MEDS: POTASSIUM CHLORIDE ORAL LIQUID 20 MEQ/15 ML PO ONE ×2 (09:07→21:10)
[2024-05-21] MEDS: ARGATROBAN - 250,000 MCG in SODIUM CHLORIDE 247.5 ML IVPB SCH (11:57)
[2024-05-21 19:50] LABS: CHLORIDE 105 mmol/L (98-107); POTASSIUM 2.9 mmol/L (3.5-5.1); SODIUM 145 mmol/L (136-145)
[2024-05-21 19:55] LABS: ANION GAP 10 mmol/L (4-13); BLOOD UREA NITROGEN 39.4 mg/dL (7-18); CALCIUM 8.5 mg/dL (8.5-10.1); CO2 30 mmol/L (21-32); GLUCOSE,RANDOM 120 mg/dL (74-106)
[2024-05-21] MEDS: MELATONIN 5 MG TABLETS PO PRN (21:10)
[2024-05-21] MEDS: NAPH,MB-DB/K PH,MBDB POWDER PACKET PO SCH (21:10)
[2024-05-22 06:12] LABS: ARTERIAL BLD GAS O2 SATURATION 96.7 % (95-98); ARTERIAL BLOOD GAS BASE EXCESS 4.1 mmol/L (-2-2); ARTERIAL BLOOD GAS PO2 83.3 mmHg (80-100); ARTERIAL BLOOD GAS pH 7.465 (7.350-7.450)
[2024-05-22 06:32] LABS: ALLENS TEST POSITIVE; VENT MODE A/C
[2024-05-22 06:33] LABS: VENT RATE 12
[2024-05-22 06:57] LABS: BASO % 0.8 % (0-2.0); EOS % 5.4 % (0-4.5); HEMATOCRIT 42.3 % (35.4-49); HEMOGLOBIN 13.7 GM/dL (11.7-16.9); MCH 27.5 pg (25.7-33.7); MCHC 32.5 g/dl (32.0-35.9); MEAN CELL VOLUME 84.6 fl (80-96); MEAN PLT VOLUME 9.2 fl (7.5-11.1); MONO % 8.2 % (3.8-10.2); NEUT % 72.6 % (42.8-82.8); PLATELET COUNT 48 10^3/uL (134-434); RBC 4.99 M/mm3 (4.00-5.60); RDW 15.4 % (11.9-15.9)
[2024-05-22 08:00] LABS: POTASSIUM 3.4 mmol/L (3.5-5.1)
[2024-05-22 08:02] LABS: ALBUMIN 2.6 g/dl (3.4-5.0); BLOOD UREA NITROGEN 32.4 mg/dL (7-18); MAGNESIUM 1.9 mg/dL (1.8-2.4)
[2024-05-22 08:06] LABS: BILIRUBIN,TOTAL 0.5 mg/dL (0.2-1); CREATININE 0.8 mg/dL (0.55-1.3); PHOSPHOROUS 2.9 mg/dL (2.5-4.9); TOT PROT 6.1 g/dl (6.4-8.2)
[2024-05-22 12:22] LABS: INR 1.57 (0.83-1.09); PROTHROMBIN TIME (PATIENT) 17.8 SEC (9.7-13.0)
[2024-05-22 12:25] LABS: ACTIVATED PTT 45.8 SECONDS (25.2-36.5)
[2024-05-22 15:28] LABS: INR 1.62 (0.83-1.09); PROTHROMBIN TIME (PATIENT) 18.4 SEC (9.7-13.0)
[2024-05-22] MEDS ORDERED: AMIODARONE IN DEXTROSE,ISO-OSM 150 MG/100 ML BAG ONE (17:58)
[2024-05-22] MEDS: AMIODARONE HCL INJECTION 150 MG in DEXTROSE 5%-WATER - 100 ML IVPB ONE (18:09)
[2024-05-22] MEDS: AMIODARONE IN DEXTROSE,ISO-OSM 360 MG/200 ML BAG IV ONE (18:19)
[2024-05-22] MEDS: ACETAMINOPHEN 1000 MG/100 ML BAG IVPB STA (18:23)
[2024-05-23] MEDS: AMIODARONE IN DEXTROSE,ISO-OSM 360 MG/200 ML BAG IV SCH
[2024-05-23 07:31] LABS: BASO % 0.9 % (0-2.0); EOS % 6.3 % (0-4.5); HEMATOCRIT 43.5 % (35.4-49); LYMPH % 14.6 % (8-40); MCH 27.6 pg (25.7-33.7); MCHC 32.2 g/dl (32.0-35.9); MEAN CELL VOLUME 85.9 fl (80-96); MEAN PLT VOLUME 10.4 fl (7.5-11.1); MONO % 10.3 % (3.8-10.2); NEUT % 67.9 % (42.8-82.8); PLATELET COUNT 59 10^3/uL (134-434); RBC 5.06 M/mm3 (4.00-5.60); RDW 15.3 % (11.9-15.9); WHITE BLOOD COUNT 8.7 K/mm3 (4.0-10.0)
[2024-05-23 08:20] LABS: ALBUMIN 2.6 g/dl (3.4-5.0); BILIRUBIN,TOTAL 0.7 mg/dL (0.2-1); BLOOD UREA NITROGEN 21.6 mg/dL (7-18); CALCIUM 8.7 mg/dL (8.5-10.1); CREATININE 0.8 mg/dL (0.55-1.3); MAGNESIUM 2.1 mg/dL (1.8-2.4); PHOSPHOROUS 3.5 mg/dL (2.5-4.9); POTASSIUM 3.5 mmol/L (3.5-5.1); TOT PROT 6.6 g/dl (6.4-8.2)
[2024-05-23 10:33] LABS: ARTERIAL BLD GAS O2 SATURATION 97.9 % (95-98); ARTERIAL BLOOD GAS PO2 104.2 mmHg (80-100); ARTERIAL BLOOD GAS pH 7.443 (7.350-7.450)
[2024-05-23 10:34] LABS: ALLENS TEST POSITIVE; VENT MODE A/C; VENT RATE 12
[2024-05-23] MEDS ORDERED: PIPERACILLIN/TAZOB 3.375 GM 3.375 GM in DEXTROSE 5%-WATER - 50 ML IVPB SCH ×2 (13:15→18:00)
[2024-05-23] MEDS: PIPERACILLIN/TAZOB 3.375 GM 50 ML IVPB SCH (14:41)
[2024-05-23] MEDS: MEROPENEM-0.9% SODIUM CHLORIDE 1 GM/50 ML BAG IVPB SCH (17:14)
[2024-05-23 20:57] LABS: ARTERIAL BLD GAS O2 SATURATION 95.9 % (95-98); ARTERIAL BLOOD GAS BASE EXCESS 5.8 mmol/L (-2-2); ARTERIAL BLOOD GAS PO2 78.9 mmHg (80-100); ARTERIAL BLOOD GAS pH 7.431 (7.350-7.450)
[2024-05-23 20:59] LABS: ALLENS TEST POSITIVE; VENT MODE A/C; VENT RATE 12
[2024-05-23 21:40] LABS: BLOOD UREA NITROGEN 21.1 mg/dL (7-18); CALCIUM 8.2 mg/dL (8.5-10.1); MAGNESIUM 1.9 mg/dL (1.8-2.4); POTASSIUM 3.7 mmol/L (3.5-5.1)
[2024-05-23 21:44] LABS: CREATININE 0.7 mg/dL (0.55-1.3); PHOSPHOROUS 3.6 mg/dL (2.5-4.9)
[2024-05-23] MEDS: KCL 10 MEQ IVPB 10 MEQ/100 ML INFUS.BAG IVPB SCH (22:45)
[2024-05-23] MEDS: MAGNESIUM SULFATE IN WATER 2 GM/50 ML IVPB IVPB ONE (22:45)
[2024-05-23 23:26] LABS: INR 1.64 (0.83-1.09); PROTHROMBIN TIME (PATIENT) 18.3 SEC (9.7-13.0)
[2024-05-23 23:29] LABS: ACTIVATED PTT 42.8 SECONDS (25.2-36.5)
[2024-05-24] MEDS: AMIODARONE IN DEXTROSE,ISO-OSM 150 MG/100 ML BAG IVPB ONE (06:25)
[2024-05-24 06:36] LABS: ARTERIAL BLD GAS O2 SATURATION 93.2 % (95-98); ARTERIAL BLOOD GAS BASE EXCESS 6.7 mmol/L (-2-2)
[2024-05-24 06:52] LABS: ALLENS TEST POSITIVE; VENT MODE A/C; VENT RATE 12
[2024-05-24 07:18] LABS: BASO % 0.9 % (0-2.0); EOS % 3.6 % (0-4.5); HEMATOCRIT 42.2 % (35.4-49); HEMOGLOBIN 13.4 GM/dL (11.7-16.9); LYMPH % 8.1 % (8-40); MCH 27.1 pg (25.7-33.7); MCHC 31.7 g/dl (32.0-35.9); MEAN CELL VOLUME 85.6 fl (80-96); MEAN PLT VOLUME 9.9 fl (7.5-11.1); MONO % 8.2 % (3.8-10.2); NEUT % 79.2 % (42.8-82.8); RBC 4.93 M/mm3 (4.00-5.60); RDW 15.6 % (11.9-15.9); WHITE BLOOD COUNT 11.2 K/mm3 (4.0-10.0)
[2024-05-24 07:32] LABS: PLATELET COUNT 31 10^3/uL (134-434)
[2024-05-24 07:50] LABS: POTASSIUM 3.7 mmol/L (3.5-5.1)
[2024-05-24 07:54] LABS: CALCIUM 8.2 mg/dL (8.5-10.1)
[2024-05-24 07:55] LABS: ALBUMIN 2.2 g/dl (3.4-5.0); BLOOD UREA NITROGEN 22.3 mg/dL (7-18); MAGNESIUM 2.2 mg/dL (1.8-2.4)
[2024-05-24 07:58] LABS: CREATININE 0.6 mg/dL (0.55-1.3); PHOSPHOROUS 2.9 mg/dL (2.5-4.9)
[2024-05-24 07:59] LABS: BILIRUBIN,TOTAL 0.6 mg/dL (0.2-1)
[2024-05-24 08:00] LABS: TOT PROT 5.8 g/dl (6.4-8.2)
[2024-05-24 11:18] LABS: INR 1.6 (0.83-1.09); PROTHROMBIN TIME (PATIENT) 18.1 SEC (9.7-13.0)
[2024-05-24 11:21] LABS: ACTIVATED PTT 55.3 SECONDS (25.2-36.5)
[2024-05-24] MEDS: PHYTONADIONE 10 MG/1 ML AMP IVPB ONE (12:46)
[2024-05-24 16:01] LABS: BASO % 0.5 % (0-2.0); EOS % 2.5 % (0-4.5); LYMPH % 8.4 % (8-40); MCH 27.4 pg (25.7-33.7); MCHC 32.5 g/dl (32.0-35.9); MEAN CELL VOLUME 84.2 fl (80-96); MEAN PLT VOLUME 10.1 fl (7.5-11.1); NEUT % 79.6 % (42.8-82.8); PLATELET COUNT 46 10^3/uL (134-434); RBC 4.75 M/mm3 (4.00-5.60); RDW 15.8 % (11.9-15.9); WHITE BLOOD COUNT 10.9 K/mm3 (4.0-10.0)
[2024-05-25] MEDS: PROPOFOL 1,000,000 MCG/100 ML VIAL IVPB SCH ×2 (00:15→07:05)
[2024-05-25 07:50] LABS: HEMATOCRIT 40.3 % (35.4-49); HEMOGLOBIN 12.8 GM/dL (11.7-16.9); MCH 27.3 pg (25.7-33.7); MCHC 31.6 g/dl (32.0-35.9); MEAN CELL VOLUME 86.3 fl (80-96); MEAN PLT VOLUME 9.4 fl (7.5-11.1); PLATELET COUNT 66 10^3/uL (134-434); RBC 4.67 M/mm3 (4.00-5.60); RDW 15.9 % (11.9-15.9)
[2024-05-25 07:57] LABS: INR 1.69 (0.83-1.09); PROTHROMBIN TIME (PATIENT) 19.1 SEC (9.7-13.0)
[2024-05-25 08:12] LABS: POTASSIUM 3.7 mmol/L (3.5-5.1)
[2024-05-25 08:22] LABS: ALBUMIN 1.9 g/dl (3.4-5.0); BLOOD UREA NITROGEN 24.6 mg/dL (7-18); CALCIUM 8.2 mg/dL (8.5-10.1)
[2024-05-25 08:25] LABS: CREATININE 0.6 mg/dL (0.55-1.3)
[2024-05-25 08:27] LABS: BILIRUBIN,TOTAL 0.5 mg/dL (0.2-1); TOT PROT 5.4 g/dl (6.4-8.2)
[2024-05-25] MEDS ORDERED: FENTANYL NS IVPB 500 MCG/100 ML BAG IVPB ONE (09:35)
[2024-05-25] MEDS: FENTANYL IVPB 500 MCG/100 ML BAG IVPB SCH (09:38)
[2024-05-25] MEDS: FAMOTIDINE 10 MG TABLET NGT SCH (10:04)
[2024-05-26] MEDS ORDERED: FENTANYL NS IVPB 500 MCG/100 ML BAG IVPB ONE (02:18)
[2024-05-26 07:14] LABS: BASO % 0.8 % (0-2.0); EOS % 4.5 % (0-4.5); HEMOGLOBIN 11.9 GM/dL (11.7-16.9); LYMPH % 21.3 % (8-40); MCH 27.4 pg (25.7-33.7); MCHC 32.2 g/dl (32.0-35.9); MEAN CELL VOLUME 85.2 fl (80-96); NEUT % 63.4 % (42.8-82.8); PLATELET COUNT 108 10^3/uL (134-434); RBC 4.34 M/mm3 (4.00-5.60); RDW 15.4 % (11.9-15.9); WHITE BLOOD COUNT 7.7 K/mm3 (4.0-10.0)
[2024-05-26 07:22] LABS: INR 1.76 (0.83-1.09); PROTHROMBIN TIME (PATIENT) 19.6 SEC (9.7-13.0)
[2024-05-26 07:25] LABS: ACTIVATED PTT 45.7 SECONDS (25.2-36.5)
[2024-05-26 07:36] LABS: ALBUMIN 1.8 g/dl (3.4-5.0); BLOOD UREA NITROGEN 30.2 mg/dL (7-18)
[2024-05-26 07:38] LABS: CALCIUM 7.9 mg/dL (8.5-10.1)
[2024-05-26 07:39] LABS: CREATININE 0.5 mg/dL (0.55-1.3); MAGNESIUM 1.8 mg/dL (1.8-2.4); PHOSPHOROUS 2.5 mg/dL (2.5-4.9)
[2024-05-26 07:41] LABS: BILIRUBIN,TOTAL 0.5 mg/dL (0.2-1)
[2024-05-26] MEDS ORDERED: RAPID SEQUENCE INTUBATION KIT NR ONE (10:47)
[2024-05-26] MEDS ORDERED: MIDAZOLAM HCL 2 MG/2 ML SINGLE DOSE VIAL ONE (10:56)
[2024-05-26] MEDS: MIDAZOLAM HCL 2 MG/2 ML SINGLE DOSE VIAL IVPUSH ONE (12:08)
[2024-05-26] MEDS: PROPOFOL 200 MG/20 ML VIAL IVPUSH ONE (12:08)
[2024-05-26] MEDS: ROCURONIUM BROMIDE 50 MG/5 ML VIAL IVPUSH ONE (12:08)
[2024-05-26] MEDS: FENTANYL NS IVPB 500 MCG/100 ML BAG IVPB SCH (18:17)
[2024-05-27 07:48] LABS: HEMATOCRIT 38.4 % (35.4-49); HEMOGLOBIN 12.7 GM/dL (11.7-16.9); MCH 27.7 pg (25.7-33.7); MCHC 33.1 g/dl (32.0-35.9); MEAN CELL VOLUME 83.9 fl (80-96); MEAN PLT VOLUME 8.4 fl (7.5-11.1); PLATELET COUNT 194 10^3/uL (134-434); RBC 4.58 M/mm3 (4.00-5.60); RDW 15.4 % (11.9-15.9); WHITE BLOOD COUNT 8.3 K/mm3 (4.0-10.0)
[2024-05-27 08:04] LABS: ALBUMIN 1.9 g/dl (3.4-5.0); BLOOD UREA NITROGEN 21.6 mg/dL (7-18); CALCIUM 8.3 mg/dL (8.5-10.1)
[2024-05-27 08:07] LABS: CREATININE 0.5 mg/dL (0.55-1.3); PHOSPHOROUS 2.9 mg/dL (2.5-4.9)
[2024-05-27 08:08] LABS: BILIRUBIN,TOTAL 0.7 mg/dL (0.2-1); TOT PROT 5.6 g/dl (6.4-8.2)
[2024-05-27 10:15] LABS: ANISOCYTOSIS 0; MACROCYTOSIS 0
[2024-05-27 13:28] LABS: INR 1.13 (0.83-1.09); PROTHROMBIN TIME (PATIENT) 12.7 SEC (9.7-13.0)
[2024-05-27] MEDS: PHYTONADIONE 10 MG/1 ML AMP IVPB ONE (13:29)
[2024-05-28] MEDS: PROPOFOL 1,000,000 MCG/100 ML VIAL IVPB SCH (02:20)
[2024-05-28 08:24] LABS: HEMATOCRIT 37.4 % (35.4-49); HEMOGLOBIN 12.1 GM/dL (11.7-16.9); MCH 27.3 pg (25.7-33.7); MCHC 32.3 g/dl (32.0-35.9); MEAN CELL VOLUME 84.5 fl (80-96); MEAN PLT VOLUME 8.1 fl (7.5-11.1); PLATELET COUNT 241 10^3/uL (134-434); RBC 4.43 M/mm3 (4.00-5.60); RDW 15.1 % (11.9-15.9); WHITE BLOOD COUNT 7.9 K/mm3 (4.0-10.0)
[2024-05-28 08:31] LABS: POTASSIUM 3.6 mmol/L (3.5-5.1)
[2024-05-28 08:32] LABS: CALCIUM 7.9 mg/dL (8.5-10.1)
[2024-05-28 08:33] LABS: ALBUMIN 1.9 g/dl (3.4-5.0); BLOOD UREA NITROGEN 19.7 mg/dL (7-18); MAGNESIUM 1.8 mg/dL (1.8-2.4)
[2024-05-28 08:36] LABS: CREATININE 0.6 mg/dL (0.55-1.3); PHOSPHOROUS 3.2 mg/dL (2.5-4.9)
[2024-05-28 08:38] LABS: BILIRUBIN,TOTAL 0.9 mg/dL (0.2-1); TOT PROT 5.5 g/dl (6.4-8.2)
[2024-05-28 09:34] LABS: ANISOCYTOSIS 0; MACROCYTOSIS 0
[2024-05-28 09:36] LABS: PLATELET ESTIMATE ADEQUATE
[2024-05-28] MEDS ORDERED: ARGATROBAN - 250,000 MCG in SODIUM CHLORIDE 247.5 ML IVPB SCH (10:00)
[2024-05-28] MEDS: POTASSIUM CHLORIDE ORAL LIQUID 20 MEQ/15 ML NGT ONE (10:25)
[2024-05-28] MEDS: FAMOTIDINE 20 MG/50 ML IVPB 20 MG/50 ML MG IVPB SCH (11:01)
[2024-05-28] MEDS: MIDODRINE HCL 5 MG TABLET NGT SCH ×2 (12:11→13:11)
[2024-05-28] MEDS: ARGATROBAN - 250,000 MCG in SODIUM CHLORIDE 247.5 ML IVPB SCH (13:10)
[2024-05-29 07:39] LABS: HEMATOCRIT 37.1 % (35.4-49); HEMOGLOBIN 12.2 GM/dL (11.7-16.9); MCH 27.7 pg (25.7-33.7); MCHC 32.8 g/dl (32.0-35.9); MEAN CELL VOLUME 84.3 fl (80-96); PLATELET COUNT 258 10^3/uL (134-434); RDW 14.7 % (11.9-15.9); WHITE BLOOD COUNT 8.7 K/mm3 (4.0-10.0)
[2024-05-29 07:41] LABS: INR 1.7 (0.83-1.09); PROTHROMBIN TIME (PATIENT) 19.3 SEC (9.7-13.0)
[2024-05-29 07:56] LABS: POTASSIUM 3.8 mmol/L (3.5-5.1)
[2024-05-29 08:03] LABS: ALBUMIN 1.9 g/dl (3.4-5.0); BLOOD UREA NITROGEN 14.8 mg/dL (7-18); CALCIUM 8.2 mg/dL (8.5-10.1); MAGNESIUM 1.9 mg/dL (1.8-2.4)
[2024-05-29 08:06] LABS: CREATININE 0.5 mg/dL (0.55-1.3)
[2024-05-29 08:08] LABS: BILIRUBIN,TOTAL 0.8 mg/dL (0.2-1); TOT PROT 5.5 g/dl (6.4-8.2)
[2024-05-29 09:32] LABS: ANISOCYTOSIS 0; MACROCYTOSIS 0
[2024-05-29 09:33] LABS: PLATELET ESTIMATE ADEQUATE
[2024-05-29] MEDS: POLYETHYLENE GLYCOL (HEALTHYLAX) 3350 17 GM PACKET NGT SCH (09:52)
[2024-05-29] MEDS: AMIODARONE HCL 200 MG TABLET PO SCH (15:40)
[2024-05-29] MEDS ORDERED: ACETAMINOPHEN 1000 MG/100 ML BAG IVPB PRN (17:49)
[2024-05-30 06:41] LABS: INR 1.92 (0.83-1.09); PROTHROMBIN TIME (PATIENT) 21.3 SEC (9.7-13.0)
[2024-05-30 06:59] LABS: EOS % 2.8 % (0-4.5); HEMOGLOBIN 11.8 GM/dL (11.7-16.9); MCH 27.5 pg (25.7-33.7); MCHC 32.8 g/dl (32.0-35.9); MEAN CELL VOLUME 83.7 fl (80-96); MEAN PLT VOLUME 7.9 fl (7.5-11.1); MONO % 10.7 % (3.8-10.2); NEUT % 66.5 % (42.8-82.8); PLATELET COUNT 273 10^3/uL (134-434); RDW 14.6 % (11.9-15.9); WHITE BLOOD COUNT 8.2 K/mm3 (4.0-10.0)
[2024-05-30 07:01] LABS: ARTERIAL BLD GAS O2 SATURATION 98.1 % (95-98); ARTERIAL BLOOD GAS BASE EXCESS 7.4 mmol/L (-2-2); ARTERIAL BLOOD GAS PO2 111.4 mmHg (80-100); ARTERIAL BLOOD GAS pH 7.417 (7.350-7.450)
[2024-05-30 07:05] LABS: VENT MODE AC; VENT RATE 12
[2024-05-30 08:04] LABS: ALBUMIN 1.8 g/dl (3.4-5.0); BILIRUBIN,TOTAL 0.7 mg/dL (0.2-1); CREATININE 0.4 mg/dL (0.55-1.3); MAGNESIUM 1.9 mg/dL (1.8-2.4); POTASSIUM 3.8 mmol/L (3.5-5.1); TOT PROT 5.3 g/dl (6.4-8.2)
[2024-05-30] MEDS: ARGATROBAN - 250,000 MCG in SODIUM CHLORIDE 247.5 ML IVPB SCH (16:00)
[2024-05-31 06:33] LABS: HEMATOCRIT 35.2 % (35.4-49); HEMOGLOBIN 11.7 GM/dL (11.7-16.9); MCH 27.8 pg (25.7-33.7); MCHC 33.4 g/dl (32.0-35.9); MEAN CELL VOLUME 83.3 fl (80-96); PLATELET COUNT 321 10^3/uL (134-434); RBC 4.22 M/mm3 (4.00-5.60); RDW 15.2 % (11.9-15.9); WHITE BLOOD COUNT 7.8 K/mm3 (4.0-10.0)
[2024-05-31 06:35] LABS: INR 2.1 (0.83-1.09); PROTHROMBIN TIME (PATIENT) 23.6 SEC (9.7-13.0)
[2024-05-31 07:58] LABS: ALBUMIN 1.7 g/dl (3.4-5.0); BLOOD UREA NITROGEN 12.2 mg/dL (7-18); CALCIUM 8.3 mg/dL (8.5-10.1); CREATININE 0.4 mg/dL (0.55-1.3); MAGNESIUM 1.8 mg/dL (1.8-2.4); POTASSIUM 3.7 mmol/L (3.5-5.1)
[2024-05-31 08:10] LABS: BILIRUBIN,TOTAL 0.7 mg/dL (0.2-1)
[2024-05-31 08:36] LABS: ANISOCYTOSIS 0; HELMET CELLS 0; HOWELL-JOLLY BODIES 0; MACROCYTOSIS 0; OVALOCYTE 0; ROULEAU 0; SICKELED CELLS 0; TARGET CELLS 0; TEAR DROP CELLS 0; TOXIC GRANULATION 0
[2024-05-31] MEDS: ARGATROBAN - 250,000 MCG in SODIUM CHLORIDE 247.5 ML IVPB SCH ×2 (08:50→19:00)
[2024-05-31 12:33] LABS: INR 1.46 (0.83-1.09); PROTHROMBIN TIME (PATIENT) 16.3 SEC (9.7-13.0)
[2024-06-01 07:47] LABS: HEMATOCRIT 38.1 % (35.4-49); HEMOGLOBIN 12.3 GM/dL (11.7-16.9); MCH 27.4 pg (25.7-33.7); MCHC 32.4 g/dl (32.0-35.9); MEAN CELL VOLUME 84.5 fl (80-96); MEAN PLT VOLUME 7.7 fl (7.5-11.1); PLATELET COUNT 342 10^3/uL (134-434); RDW 15.1 % (11.9-15.9); WHITE BLOOD COUNT 7.2 K/mm3 (4.0-10.0)
[2024-06-01 08:02] LABS: POTASSIUM 3.9 mmol/L (3.5-5.1)
[2024-06-01 08:04] LABS: BLOOD UREA NITROGEN 11.1 mg/dL (7-18); CALCIUM 8.3 mg/dL (8.5-10.1)
[2024-06-01 08:07] LABS: CREATININE 0.4 mg/dL (0.55-1.3)
[2024-06-01 09:33] LABS: ANISOCYTOSIS 0; HELMET CELLS 0; HOWELL-JOLLY BODIES 0; MACROCYTOSIS 0; OVALOCYTE 0; ROULEAU 0; SICKELED CELLS 0; TARGET CELLS 0; TEAR DROP CELLS 0; TOXIC GRANULATION 0
[2024-06-01 14:02] LABS: MAGNESIUM 1.8 mg/dL (1.8-2.4)
[2024-06-01 14:11] LABS: PHOSPHOROUS 2.7 mg/dL (2.5-4.9)
[2024-06-01] MEDS: MAGNESIUM 2GM/50ML STERILE WATER IVPB IVPB ONE (14:20)
[2024-06-01] MEDS: ACETAMINOPHEN 1000 MG/100 ML BAG IVPB PRN (20:04)
[2024-06-01] MEDS: DEXTROSE 5%-LACTATED RINGERS 1,000 ML IV SCH (20:05)
[2024-06-01 20:39] LABS: EPI CELLS 8 /uL (0-25.1); HYALINE CASTS 2 /uL (0-3.1); PH,URINE 5.5 (5.0-8.0); URINE APPEARANCE CLOUDY; URINE BACTERIA 10 /uL (0-1359); URINE BILIRUBIN 1+ (NEGATIVE); URINE COLOR RED; URINE GLUCOSE (UA) NEGATIVE (NEGATIVE); URINE KETONE 4+ (NEGATIVE); URINE LEUK ESTERASE 1+ (NEGATIVE); URINE NITRITE NEGATIVE (NEGATIVE); URINE PROTEIN 2+ (NEGATIVE); URINE RBC 27753 /uL (0-23.9); URINE WBC 106 /uL (0-25.8)
[2024-06-01] MEDS: QUEtiapine FUMARATE 25 MG TABLET PO SCH (21:34)
[2024-06-02 07:20] LABS: BASO % 1.1 % (0-2.0); EOS % 1.3 % (0-4.5); HEMATOCRIT 39.1 % (35.4-49); HEMOGLOBIN 12.6 GM/dL (11.7-16.9); LYMPH % 13.2 % (8-40); MCH 26.9 pg (25.7-33.7); MCHC 32.2 g/dl (32.0-35.9); MEAN CELL VOLUME 83.6 fl (80-96); MEAN PLT VOLUME 7.5 fl (7.5-11.1); MONO % 11.4 % (3.8-10.2); PLATELET COUNT 377 10^3/uL (134-434); RBC 4.68 M/mm3 (4.00-5.60); RDW 14.6 % (11.9-15.9); WHITE BLOOD COUNT 9.3 K/mm3 (4.0-10.0)
[2024-06-02 07:56] LABS: INR 1.76 (0.83-1.09); PROTHROMBIN TIME (PATIENT) 19.9 SEC (9.7-13.0)
[2024-06-02 07:58] LABS: ACTIVATED PTT 59.9 SECONDS (25.2-36.5)
[2024-06-02 08:47] LABS: BILIRUBIN,TOTAL 0.8 mg/dL (0.2-1); BLOOD UREA NITROGEN 8.4 mg/dL (7-18); CREATININE 0.4 mg/dL (0.55-1.3); POTASSIUM 3.1 mmol/L (3.5-5.1); TOT PROT 5.5 g/dl (6.4-8.2)
[2024-06-02 09:49] LABS: PHOSPHOROUS 1.6 mg/dL (2.5-4.9)
[2024-06-02] MEDS: POTASSIUM CHLORIDE ORAL LIQUID 20 MEQ/15 ML GT ONE (10:57)
[2024-06-02] MEDS: MIDODRINE HCL 2.5 MG TABLET NGT SCH (13:12)
[2024-06-02] MEDS: ALBUTEROL SO4 0.083% IH SOL 2.5 MG/3 ML VIAL.NEB. NEB SCH (16:25)
[2024-06-02] MEDS: ACETYLCYSTEINE 20% 200MG/ML 4 ML VIAL *FOR ORAL / INH USE ONLY NEB SCH (16:25)
[2024-06-02] MEDS: AMINO ACIDS/PROTEIN HYDROLYS 30 ML LIQUID.PKT NGT SCH (17:46)
[2024-06-02 20:24] LABS: INR 1.78 (0.83-1.09); PROTHROMBIN TIME (PATIENT) 19.8 SEC (9.7-13.0)
[2024-06-02] MEDS: NAPH,MB-DB/K PH,MBDB POWDER PACKET GT ONE (21:06)
[2024-06-03 07:49] LABS: BASO % 0.8 % (0-2.0); EOS % 0.6 % (0-4.5); HEMATOCRIT 37.5 % (35.4-49); LYMPH % 13.1 % (8-40); MCHC 31.9 g/dl (32.0-35.9); MEAN CELL VOLUME 84.5 fl (80-96); MEAN PLT VOLUME 7.7 fl (7.5-11.1); MONO % 9.2 % (3.8-10.2); NEUT % 76.3 % (42.8-82.8); PLATELET COUNT 326 10^3/uL (134-434); RBC 4.44 M/mm3 (4.00-5.60); RDW 14.4 % (11.9-15.9)
[2024-06-03 08:03] LABS: POTASSIUM 3.5 mmol/L (3.5-5.1)
[2024-06-03 08:21] LABS: ALBUMIN 1.9 g/dl (3.4-5.0)
[2024-06-03 08:22] LABS: PHOSPHOROUS 2.3 mg/dL (2.5-4.9)
[2024-06-03 08:23] LABS: CALCIUM 8.1 mg/dL (8.5-10.1)
[2024-06-03 08:24] LABS: BLOOD UREA NITROGEN 11.7 mg/dL (7-18)
[2024-06-03 08:27] LABS: CREATININE 0.5 mg/dL (0.55-1.3)
[2024-06-03 08:28] LABS: BILIRUBIN,TOTAL 1.2 mg/dL (0.2-1)
[2024-06-03] MEDS: NAPH,MB-DB/K PH,MBDB POWDER PACKET PO ONE (10:10)
[2024-06-03] MEDS: SIMETHICONE 80 MG TAB.CHEW (FP) PO PRN (10:11)
[2024-06-03] MEDS ORDERED: ACETAMINOPHEN 1000 MG/100 ML BAG IVPB PRN (11:20)
[2024-06-03] MEDS: ACETAMINOPHEN 1000 MG/100 ML BAG IVPB PRN (13:26)
[2024-06-03] MEDS: APIXABAN 5 MG TABLET PO SCH (14:55)
[2024-06-03] MEDS: ESCITALOPRAM OXALATE 5 MG/5 ML PO SCH (16:29)
[2024-06-03] MEDS: NAPH,MB-DB/K PH,MBDB POWDER PACKET GT ONE (16:30)
[2024-06-03] MEDS: dilTIAZem HCL 50 MG/10 ML - 10 ML VIAL IVPUSH ONE (17:54)
[2024-06-03] MEDS: QUEtiapine FUMARATE 25 MG TABLET PO ONE (18:19)
[2024-06-03] MEDS: DIGOXIN 0.5 MG/2 ML AMPUL IVPUSH ONE ×2 (18:59→20:08)
[2024-06-03] MEDS: METOPROLOL TARTRATE 25 MG TABLET (FP) PO SCH (21:03)
[2024-06-04] MEDS ORDERED: DIGOXIN 0.5 MG/2 ML AMPUL IVPUSH ONE ×2 (01:00→07:00)
[2024-06-04] MEDS: DIGOXIN 0.5 MG/2 ML AMPUL IVPUSH SCH (02:12)
[2024-06-04 08:25] LABS: HEMATOCRIT 38.6 % (35.4-49); HEMOGLOBIN 12.3 GM/dL (11.7-16.9); MCH 26.7 pg (25.7-33.7); MCHC 31.9 g/dl (32.0-35.9); MEAN CELL VOLUME 83.5 fl (80-96); MEAN PLT VOLUME 8.3 fl (7.5-11.1); PLATELET COUNT 358 10^3/uL (134-434); RBC 4.62 M/mm3 (4.00-5.60); RDW 14.6 % (11.9-15.9)
[2024-06-04] MEDS ORDERED: METOPROLOL TARTRATE 50 MG TABLET (FP) PO SCH (08:29)
[2024-06-04 08:54] LABS: POTASSIUM 3.7 mmol/L (3.5-5.1)
[2024-06-04 08:59] LABS: ALBUMIN 2.1 g/dl (3.4-5.0); BLOOD UREA NITROGEN 10.6 mg/dL (7-18); CALCIUM 8.3 mg/dL (8.5-10.1); MAGNESIUM 1.9 mg/dL (1.8-2.4)
[2024-06-04 09:02] LABS: CREATININE 0.5 mg/dL (0.55-1.3); PHOSPHOROUS 2.3 mg/dL (2.5-4.9)
[2024-06-04 09:03] LABS: BILIRUBIN,TOTAL 0.6 mg/dL (0.2-1); TOT PROT 5.4 g/dl (6.4-8.2)
[2024-06-04] MEDS: METOPROLOL TARTRATE 50 MG TABLET (FP) GT SCH (09:04)
[2024-06-04] MEDS: DIGOXIN 250 MCG/5 ML LIQUID GT SCH (09:09)
[2024-06-04] MEDS ORDERED: NAPH,MB-DB/K PH,MBDB POWDER PACKET PO ONE (10:00)
[2024-06-04] MEDS: FAMOTIDINE 20 MG/2.5 ML ORAL LIQUID PEG SCH (11:00)
[2024-06-04] MEDS: NAPH,MB-DB/K PH,MBDB POWDER PACKET PO ONE (15:00)
[2024-06-04] MEDS ORDERED: QUEtiapine FUMARATE 25 MG TABLET PO ONE (17:33)
[2024-06-04] MEDS ORDERED: SODIUM CHLORIDE FOR INHALATION 3 ML VIAL.NEB IH PRN (19:07)
[2024-06-04] MEDS ORDERED: METOPROLOL TARTRATE 5 MG/5 ML VIAL IVPUSH PRN (19:07)
[2024-06-04] MEDS: CHLORHEXIDINE GLUCONATE 4% CLEANSER FOR DECOLONIZATION TP SCH (21:00)
[2024-06-04] MEDS: AMIODARONE HCL 200 MG TABLET PO SCH (21:16)
[2024-06-04] MEDS: QUEtiapine FUMARATE 25 MG TABLET PO SCH (21:17)
[2024-06-04] MEDS: MELATONIN 5 MG TABLETS PO PRN (21:17)
[2024-06-05 07:35] LABS: HEMATOCRIT 35.1 % (35.4-49); HEMOGLOBIN 11.4 GM/dL (11.7-16.9); MCH 27.4 pg (25.7-33.7); MCHC 32.4 g/dl (32.0-35.9); MEAN CELL VOLUME 84.6 fl (80-96); MEAN PLT VOLUME 7.9 fl (7.5-11.1); PLATELET COUNT 288 10^3/uL (134-434); RBC 4.15 M/mm3 (4.00-5.60); RDW 14.7 % (11.9-15.9); WHITE BLOOD COUNT 9.3 K/mm3 (4.0-10.0)
[2024-06-05 07:54] LABS: POTASSIUM 3.4 mmol/L (3.5-5.1)
[2024-06-05 07:57] LABS: BLOOD UREA NITROGEN 16.2 mg/dL (7-18); MAGNESIUM 1.8 mg/dL (1.8-2.4)
[2024-06-05 08:00] LABS: CREATININE 0.5 mg/dL (0.55-1.3)
[2024-06-05 08:01] LABS: PHOSPHOROUS 1.7 mg/dL (2.5-4.9)
[2024-06-05 08:02] LABS: BILIRUBIN,TOTAL 0.4 mg/dL (0.2-1)
[2024-06-05] MEDS: NAPH,MB-DB/K PH,MBDB POWDER PACKET PEG ONE (09:10)
[2024-06-05] MEDS: POLYETHYLENE GLYCOL (HEALTHYLAX) 3350 17 GM PACKET NGT SCH (09:17)
[2024-06-05] MEDS: DOCUSATE NA 100 MG/10 ML UNIT-DOSE CUPS NGT SCH (12:11)
[2024-06-05] MEDS: POTASSIUM CHLORIDE ORAL LIQUID 20 MEQ/15 ML PO ONE (14:25)
[2024-06-05] MEDS: POTASSIUM CHLORIDE TABS 20 MEQ TABLET.ER (FP) PO ONE (14:25)
[2024-06-05] MEDS: ACETAMINOPHEN 1000 MG/100 ML BAG IVPB ONE (15:25)
[2024-06-06 07:03] LABS: HEMATOCRIT 34.4 % (35.4-49); HEMOGLOBIN 11.1 GM/dL (11.7-16.9); MCH 27.5 pg (25.7-33.7); MCHC 32.2 g/dl (32.0-35.9); MEAN CELL VOLUME 85.4 fl (80-96); MEAN PLT VOLUME 7.8 fl (7.5-11.1); PLATELET COUNT 267 10^3/uL (134-434); RBC 4.03 M/mm3 (4.00-5.60); RDW 14.3 % (11.9-15.9)
[2024-06-06 07:04] LABS: BASO % 0.6 % (0-2.0); EOS % 2.1 % (0-4.5); MONO % 10.3 % (3.8-10.2)
[2024-06-06 07:20] LABS: POTASSIUM 3.8 mmol/L (3.5-5.1)
[2024-06-06 07:26] LABS: CALCIUM 8.1 mg/dL (8.5-10.1)
[2024-06-06 07:27] LABS: BLOOD UREA NITROGEN 15.4 mg/dL (7-18); MAGNESIUM 1.8 mg/dL (1.8-2.4)
[2024-06-06 07:30] LABS: CREATININE 0.5 mg/dL (0.55-1.3); PHOSPHOROUS 2.2 mg/dL (2.5-4.9)
[2024-06-06 07:31] LABS: BILIRUBIN,TOTAL 0.5 mg/dL (0.2-1)
[2024-06-06] MEDS: ACETAMINOPHEN 1000 MG/100 ML BAG IVPB ONE (09:40)
[2024-06-06] MEDS: HALOPERIDOL LACTATE 5 MG/ML IM ONE ×2 (11:32→12:52)
[2024-06-06] MEDS: NAPH,MB-DB/K PH,MBDB POWDER PACKET PO ONE (15:41)
[2024-06-06] MEDS: ACETAMINOPHEN 1000 MG/100 ML BAG IVPB PRN (15:42)
[2024-06-06] MEDS: QUEtiapine FUMARATE 25 MG TABLET PO SCH (21:30)
[2024-06-07 06:47] LABS: HEMATOCRIT 38.8 % (35.4-49); HEMOGLOBIN 12.2 GM/dL (11.7-16.9); MCH 27.2 pg (25.7-33.7); MCHC 31.6 g/dl (32.0-35.9); MEAN PLT VOLUME 7.7 fl (7.5-11.1); PLATELET COUNT 307 10^3/uL (134-434); RBC 4.51 M/mm3 (4.00-5.60); RDW 14.7 % (11.9-15.9); WHITE BLOOD COUNT 8.8 K/mm3 (4.0-10.0)
[2024-06-07 07:13] LABS: POTASSIUM 3.7 mmol/L (3.5-5.1)
[2024-06-07 07:16] LABS: CALCIUM 8.8 mg/dL (8.5-10.1)
[2024-06-07 07:17] LABS: BLOOD UREA NITROGEN 14.2 mg/dL (7-18); MAGNESIUM 1.9 mg/dL (1.8-2.4)
[2024-06-07 07:20] LABS: CREATININE 0.5 mg/dL (0.55-1.3); PHOSPHOROUS 2.8 mg/dL (2.5-4.9)
[2024-06-07 07:21] LABS: BILIRUBIN,TOTAL 0.7 mg/dL (0.2-1)
[2024-06-07 07:31] LABS: ALBUMIN 2.5 g/dl (3.4-5.0)
[2024-06-08 06:54] LABS: HEMATOCRIT 38.9 % (35.4-49); HEMOGLOBIN 12.4 GM/dL (11.7-16.9); MCH 27.3 pg (25.7-33.7); MCHC 31.9 g/dl (32.0-35.9); MEAN CELL VOLUME 85.5 fl (80-96); MEAN PLT VOLUME 7.8 fl (7.5-11.1); PLATELET COUNT 316 10^3/uL (134-434); RBC 4.55 M/mm3 (4.00-5.60); RDW 15.2 % (11.9-15.9); WHITE BLOOD COUNT 9.8 K/mm3 (4.0-10.0)
[2024-06-08 07:05] LABS: POTASSIUM 4.3 mmol/L (3.5-5.1)
[2024-06-08 07:10] LABS: CALCIUM 8.8 mg/dL (8.5-10.1)
[2024-06-08 07:11] LABS: ALBUMIN 2.6 g/dl (3.4-5.0); BLOOD UREA NITROGEN 16.3 mg/dL (7-18)
[2024-06-08 07:14] LABS: CREATININE 0.6 mg/dL (0.55-1.3)
[2024-06-08 07:15] LABS: BILIRUBIN,TOTAL 0.6 mg/dL (0.2-1); TOT PROT 6.2 g/dl (6.4-8.2)
[2024-06-08 13:26] VITALS: BP 158/129; PULSE 80; RESP 19; TEMP 98.4
[2024-06-09] MEDS ORDERED: AMIODARONE HCL 200 MG TABLET PO SCH (10:00)
== END 2024-06-08 14:00 | DRG 4 ==
LOC: FER 16:22 → FM/S 21:22 → J4W 04-24 12:11 → JICU 04-25 17:06 → J4W 05-09 22:16 → JICU 05-10 03:43 → J2W 06-04 17:57
PROVIDERS: ADMIT Internal Medicine; ATTEND Internal Medicine
PROC: 5A1945Z Respiratory Ventilation, 24-96 Consecutive Hours (ICD-10-PCS; 2024-04-26)
PROC: 0BH17EZ Insertion of Endotracheal Airway into Trachea, Via Natural or Artificial Opening (ICD-10-PCS; 2024-04-26)
PROC: 5A1945Z Respiratory Ventilation, 24-96 Consecutive Hours (ICD-10-PCS; 2024-05-01)
PROC: 0BH17EZ Insertion of Endotracheal Airway into Trachea, Via Natural or Artificial Opening (ICD-10-PCS; 2024-05-01)
PROC: 02HV33Z Insertion of Infusion Device into Superior Vena Cava, Percutaneous Approach (ICD-10-PCS; 2024-05-01)
PROC: B548ZZA Ultrasonography of Superior Vena Cava, Guidance (ICD-10-PCS; 2024-05-01)
PROC: 5A1955Z Respiratory Ventilation, Greater than 96 Consecutive Hours (ICD-10-PCS; 2024-05-10)
PROC: 0BH17EZ Insertion of Endotracheal Airway into Trachea, Via Natural or Artificial Opening (ICD-10-PCS; 2024-05-10)
PROC: 5A1955Z Respiratory Ventilation, Greater than 96 Consecutive Hours (ICD-10-PCS; 2024-05-20)
PROC: 0BH17EZ Insertion of Endotracheal Airway into Trachea, Via Natural or Artificial Opening (ICD-10-PCS; 2024-05-20)
PROC: 0B113F4 Bypass Trachea to Cutaneous with Tracheostomy Device, Percutaneous Approach (ICD-10-PCS; principal; 2024-05-26)
PROC: 0BJ08ZZ Inspection of Tracheobronchial Tree, Via Natural or Artificial Opening Endoscopic (ICD-10-PCS; 2024-05-26)
PROC: 0DH63UZ Insertion of Feeding Device into Stomach, Percutaneous Approach (ICD-10-PCS; 2024-05-31)
PROC: 3E0G76Z Introduction of Nutritional Substance into Upper GI, Via Natural or Artificial Opening (ICD-10-PCS; 2024-05-31)
PROC: 0D20XUZ Change Feeding Device in Upper Intestinal Tract, External Approach (ICD-10-PCS; 2024-06-06)
DX: I82.411 Acute embolism and thrombosis of right femoral vein (principal); J18.9 Pneumonia, unspecified organism; J96.01 Acute respiratory failure with hypoxia; J96.02 Acute respiratory failure with hypercapnia; I50.31 Acute diastolic (congestive) heart failure; A41.9 Sepsis, unspecified organism; R65.21 Severe sepsis with septic shock; E87.1 Hypo-osmolality and hyponatremia; E87.29 Other acidosis; G62.81 Critical illness polyneuropathy; E44.0 Moderate protein-calorie malnutrition; E78.5 Hyperlipidemia, unspecified; E87.6 Hypokalemia; R13.10 Dysphagia, unspecified; R33.8 Other retention of urine; E83.39 Other disorders of phosphorus metabolism; D69.6 Thrombocytopenia, unspecified; Z68.29 Body mass index [BMI] 29.0-29.9, adult; I48.91 Unspecified atrial fibrillation; I11.0 Hypertensive heart disease with heart failure; D75.839 Thrombocytosis, unspecified; L89.132 Pressure ulcer of right lower back, stage 2
CPT/HCPCS: 0241U-QW; 31500; 36415; 36430; 36511; 36600; 49440; 49450; 71045-TC-FY; 71275-TC; 74018-TC-FY; 74176-TC; 80048; 80053; 80061; 80162; 81003; 82436; 82550; 82570; 82607; 82668; 82747; 82803; 82962; 83036; 83605; 83735; 83880; 84100; 84133; 84300; 84439; 84443; 84484; 85014; 85025; 85027; 85045; 85379; 85610; 85730; 86022; 86850; 86870; 86880; 86900; 86901; 86902; 86922; 87040; 87070; 87086; 87205; 87481; 87899; 93005; 93010; 93306-TC; 93970-TC; 94002; 94010; 94640; 94660; 97116-GP; 97161-GP; 99285-25; J0131; J0282; J0883; P9037; P9038; Q9967